=== PATIENT | male | born 1955 | race Caucasian/White ===

== ENCOUNTER 2016-06-27 19:31 | Emergency (ER) | payer OTHER ==
[~2016-06-27] VITALS: Ht 175.3 cm; Wt 83.5 kg
[~2016-06-27 19:31] MED LIST: AMOX-CLAV 875-1 EACH PO; AMOXICILLIN500 M3 PO; AQUAPHOR1 OI1 TOP; ASPIRIN CHILDRE81 MG PO; ASPIRIN81 M4 PO; ATORVASTATIN CA10 MG PO; ATROPINE SULFATE2 ML OS; AUGMENTIN 875-1 EACH PO; CEPHALEXIN500 MG PO; FUROSEMIDE20 M1 PO; HUMALOG100 U/ML SC; LANTUS INS100 UNITS/ SC; LEVEMIR 10100 UNITS/ SC; LEVEMIR FL100 UNIT/1 SC; LEVEMIR100 U/ML SC; LEVEMIR100 UNIT/1 SC; LEVOTHYROXINE200 MC1 PO; LISINOPRIL20 M1 PO; LOPRESSOR50 M1 PO; LORAZEPAM0.5 MG PO; MASON NATURAL2000 IU PO; MEDIHONEY TOP; MEDROL4 M2 PO; METOPROLOL SUCC25 MG PO; NEURONTIN300 M1 PO; NOVOLOG100 U/ML SC; PREDNISOLONE ACE5 ML OS; SULFAMETHOXAZO1 EAC1 PO; VIGAMOX3 ML OS; VITAMIN D1000 IU PO
--- NOTE | 2016-06-27 19:33 | ED SYNCOPE COMPLAINT ---
History of Present Illness General Chief Complaint: Syncope and Near-Syncope Stated Complaint: BIBA SYNCOPE Source: patient, family, old records, EMS Exam Limitations: no limitations Vital Signs & Intake/Output Vital Signs & Intake/Output Vital Signs Date Time Temp Pulse Resp B/P Pulse O2 O2 Flow FiO2 Ox Delivery Rate 06/27 2230 73 172/94 06/27 2214 70 178/100 06/27 2137 97.0 70 16 178/100 93 Room Air 06/27 2004 94 Room Air 06/27 1939 97.0 77 16 170/86 93 Room Air ED Intake and Output 06/28 0000 06/27 1200 Intake Total 0 Output Total Balance 0 Intake, Oral 0 Patient 184 lb Weight Allergies Coded Allergies: No Known Allergies (06/27/16) Reconcile Medications Aspirin (Aspirin*) 81 MG TAB.CHEW 1 TAB PO DAILY HEART HEALTH (Reported) Atorvastatin Calcium (Lipitor) 40 MG TABLET 1 TAB PO DAILY CHOLESTEROL ( Reported) [autologous serum] 1 DROP OS 4XDAILY FOR SUSPECTED VIRAL INFECTION (Reported) Doxycycline Monohydrate 100 MG CAPSULE 1 CAP PO DAILY ANTIBIOTIC (Reported) Furosemide 20 MG TABLET 1 TAB PO DAILY DIURETIC (Reported) Insulin Aspart (Novolog) (Unknown Strength) VIAL (Unknown Dose) SC TIDAC/HS DM (Reported) Insulin Detemir (Levemir) 100 UNIT/1 ML VIAL 10 U SC DAILY DIABETES (Reported ) Insulin Detemir (Levemir Flextouch) 100 UNIT/ML (3 ML) INSULN.PEN 20 U SC QPM DIABETES (Reported) Levothyroxine Sodium 200 MCG TABLET 1 TAB PO DAILY THYROID (Reported) Lisinopril 20 MG TABLET 1 TAB PO DAILY BLOOD PRESSURE (Reported) Metoprolol Tartrate (Lopressor) (Unknown Strength) TABLET (Unknown Dose) PO DAILY HEART/BP (Reported) Trifluridine 1 % DROPS 1 DROP OS 5 TIMES/DAY ANTIVIRAL (Reported) Triage Nurses Notes Reviewed? yes Timing: single episode today Precipitating Factors: none Context: PLEASE SEE hpi Loss of Consciousness: dazed Associated Symptoms: weakness HPI: 61 year old male with history of hypertension cortices who presents to the ER for chief complaint of syncopal episode on the bed. He states he was sitting on the edge of the bed talking to his . He had a normal day went to a hockey game this morning. Eating and drinking normally. He states when he was sitting on the bed and he felt like he couldn't move. When the got out of the bathroom she said he was lying flat on the bed and was dazed. Symptoms lasted for less than a minute. He denies chest pain or shortness breath. He denies any headache or blurred vision. He states some similar happened to him many years ago and was diagnosed with a vasovagal episode. Patient follows up with Dr. Landaverde in the office in 2 weeks ago he had an EKG and echocardiogram which they assume was normal. He also had a follow-up with his primary care doctor in everything was normal. Past History Medical History Any Pertinent Medical History? 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 Hx Contributory? No Review of Systems Review of Systems Constitutional: Denies: chills, fever. Physical Exam Physical Exam General Appearance: well developed/nourished, alert, awake, mild distress Head: atraumatic, active bleeding Eyes: Bilateral: normal appearance, PERRL, EOMI. Ears, Nose, Throat: normal pharynx, normal ENT inspection, hearing grossly normal Neck: normal inspection, supple, full range of motion Respiratory: normal breath sounds, chest non-tender, quiet respiration Cardiovascular: regular rate/rhythm Gastrointestinal: normal bowel sounds, soft Extremities: normal inspection, normal capillary refill, normal range of motion, no edema Psychiatric: awake, alert, oriented x 3 Cranial Nerves: normal hearing, normal speech, PERRL Coordination/Gait: normal finger to nose, slow steady gait with assistance (uses walker) Motor/Sensory: no motor/sensory deficits Core Measures ACS in differential dx? Yes ASA ordered for poss ACS? No-ACS ruled out CVA/TIA Diagnosis: No Severe Sepsis Present: No Septic Shock Present: No Progress Differential Diagnosis: AMI, aortic dissection, orthostatic syncope, pulmonary embolus, sick sinus syndrome, ORTHOSTATIC HYPOTENSION, VASOVAGAL EPISODE, DYSRHYTHMIA Plan of Care: Orders Procedure Date/time Status TROPONIN LEVEL 06/27 2329 Complete EKG 06/27 2329 Active URINALYSIS 06/27 2105 Complete MISTAKE 06/27 1945 Active Telemetry/Ecdis N Navigation Operator 06/27 1945 Active TROPONIN LEVEL 06/27 1945 Complete PARTIAL THROMBOPLASTIN TIME 06/27 1945 Complete PROTHROMBIN TIME 06/27 1945 Complete COMPREHENSIVE METABOLIC PANEL 06/27 1945 Complete CBC WITHOUT DIFFERENTIAL 06/27 1945 Complete EKG 06/28 1931 Active Laboratory Tests 06/27/160: Troponin I < 0.01 06/27/162150: Urine Color YEL, Urine Clarity CLEAR, Urine pH 6.5, Ur Specific [place] 1.025, Urine Protein >=300 H, Urine Ketones NEG, Urine Nitrite NEG, Urine Bilirubin NEG, Urine Urobilinogen >=8.0 H, Ur Leukocyte Esterase NEG, Ur Microscopic SEDIMENT EXAMINED, Urine RBC 15-25 H, Urine WBC RARE, Urine Bacteria RARE H, Hyaline Casts 1-3 H, Urine Hemoglobin SMALL H, Urine Glucose 100 H 06/27/161955: Anion Gap 7, Estimated GFR > 60, BUN/Creatinine Ratio 32.5 H, Glucose 107 H, Calcium 9.2, Total Bilirubin 0.6, AST 27, ALT 35, Alkaline Phosphatase 105, Troponin I < 0.01, Total Protein 6.1 L, Albumin 3.3 L, Globulin 2.8, Albumin/ Globulin Ratio 1.2, PT 11.4, INR 1.09, APTT 41 H, CBC w Diff NO MAN DIFF REQ, RBC 4.02 L, MCV 92.9, MCH 30.9, RDW 16.1 H, MPV 11.4 H, Gran % 55.0, Lymphocytes % 26.3, Monocytes % 12.0 H, Eosinophils % 6.2 H, Basophils % 0.5, Absolute Granulocytes 2.8, Absolute Lymphocytes 1.3, Absolute Monocytes 0.6, Absolute Eosinophils 0.3, Absolute Basophils 0, PUBS MCHC 33.2 EKG, nurse monitoring, orthostatic vital signs. Patient asymptomatic at this time. States similar things happen in the past. Recent cardiology evaluation which was normal per the patient. First troponin is negative. We will monitor the patient for second troponin and EKG. Remains normal sinus rhythm on the nurse monitoring. He has been admitted her to the bathroom with steady gait. Repeat troponin is also negative. Patient was given his hypertensive medication as well as his gave him his eyedrops. They will follow-up with Dr. Knight 's office tomorrow for results of the echocardiogram and EKG. No chest pain during the visit. No shortness of breath during the visit. (KANE BURROUGHS,AMINA) Initial ED EKG: LBBB, 1ST DEGREE AV BLOCK, T WAVE INVERSION LATERAL Prior EKG: unchanged Repeat EKG: unchanged Rhythm Strip: normal sinus rhythm Departure Departure Time of Disposition: 38 Disposition: HOME OR SELF CARE Condition: Stable Clinical Impression Primary Impression: Vasovagal syncope Secondary Impressions: Dehydration, Hypertension Referrals: SURY BURROUGHS,DELL KENDRICK MD,LEILA (PCP/Family) Additional Instructions: Drink plenty of fluids and please follow up with Dr. Barahona in the office. Return immediately to the ER for any changing or worsening symptoms. Departure Forms: Customer Survey General Discharge Information
[2016-06-27 20:13] LABS: ABSOLUTE BASOPHIL COUNT 0 /CUMM (0.0-0.2); ABSOLUTE EOSINOPHIL COUNT 0.3 /CUMM (0.0-0.7); ABSOLUTE GRANULOCYTE CT 2.8 /CUMM (1.4-6.5); ABSOLUTE LYMPH COUNT 1.3 /CUMM (1.2-3.4); ABSOLUTE MONOCYTE COUNT 0.6 /CUMM (0.10-0.60); BASOPHIL % 0.5 % (0.0-2.0); EOSINOPHIL % 6.2 % (0-5); HEMATOCRIT 37.3 % (42-52); MEAN CORPUSCULAR HGB 30.9 PG (27.0-31.0); MEAN CORPUSCULAR HGB CONC 33.2 G/DL (33.0-37.0); MEAN CORPUSCULAR VOLUME 92.9 FL (80.0-94.0); MEAN PLATELET VOLUME 11.4 FL (7.4-10.4); RBC DISTRIBUTION WIDTH 16.1 % (11.5-14.5); RED BLOOD CELL CT 4.02 /CUMM (4.70-6.10); WHITE BLOOD CELL COUNT 5.1 /CUMM (4.8-10.8)
[2016-06-27 20:20] LABS: PT 11.4 SEC (9.4-12.5); PTT 41 SEC (25-37)
[2016-06-27 20:33] LABS: PLATELET COUNT 141 /CUMM (130-400)
[2016-06-27] MEDS ORDERED: LIPITOR40 M1 PO (20:53)
[2016-06-27] MEDS ORDERED: DOXYCYCLINE MO100 M2 PO (20:55)
[2016-06-27] MEDS ORDERED: TRIFLURIDINE7.5 ML OS (20:57)
[2016-06-27] MEDS ORDERED: NOVOLOG100 UNIT/2 SC (20:59)
[2016-06-27] MEDS ORDERED: AUTOLOGOUS SERUM OS (20:59)
[2016-06-28 00:45] VITALS: BP 186/90
== END 2016-06-28 00:58 ==
LOC: ERH 19:31
PROVIDERS: Emergency Medicine
DX: R55 Syncope and collapse (principal); E86.0 Dehydration; I10 Essential (primary) hypertension
CPT/HCPCS: 81001; 93005; 93010; 96372; 96374

== ENCOUNTER 2016-09-04 15:28 | Observation (INO) | payer OTHER ==
[~2016-09-04 15:28] MED LIST changes: +AUTOLOGOUS SERUM OS; +DOXYCYCLINE MO100 M2 PO; +LIPITOR40 M1 PO; +NOVOLOG100 UNIT/2 SC; +TRIFLURIDINE7.5 ML OS
[2016-09-04] MEDS ORDERED: LISINOPRIL40 M1 PO (15:44)
--- NOTE | 2016-09-04 15:44 | ED SYNCOPE COMPLAINT ---
See Addendum History of Present Illness General Chief Complaint: General Adult Stated Complaint: SYNCOPE, HYPERGLYCEMIA Source: patient, family, old records Exam Limitations: no limitations Vital Signs & Intake/Output Vital Signs & Intake/Output Vital Signs Date Time Temp Pulse Resp B/P B/P Pulse O2 O2 Flow FiO2 Mean Ox Delivery Rate 09/05 0052 95.5 64 20 170/87 95 Nasal 2.0L Cannula 09/04 2310 Nasal 2.0L Cannula 09/04 2212 98.2 80 18 166/84 94 Nasal 2.0L Cannula 09/04 1921 83 18 171/80 96 Nasal 2.0L Cannula 09/04 1744 95 Nasal 2.0L Cannula 09/04 1731 62 16 160/72 90 Room Air 09/04 1536 97.8 62 15 150/84 92 Room Air Room Air ED Intake and Output 09/05 0000 09/04 1200 Intake Total 0 Output Total Balance 0 Intake, Oral 0 Allergies Coded Allergies: No Known Allergies (06/27/16) Reconcile Medications Aspirin (Aspirin*) 81 MG TAB.CHEW 1 TAB PO DAILY HEART HEALTH (Reported) Atorvastatin Calcium (Lipitor) 40 MG TABLET 1 TAB PO DAILY CHOLESTEROL ( Reported) [autologous serum] 1 DROP OS 4XDAILY FOR SUSPECTED VIRAL INFECTION (Reported) Furosemide 20 MG TABLET 1 TAB PO DAILY DIURETIC (Reported) Insulin Aspart (Novolog) (Unknown Strength) VIAL (Unknown Dose) SC TIDAC/HS DM (Reported) Insulin Degludec (Tresiba Flextouch U-100) (Unknown Strength) INSULN.PEN 26 UNITS SC QHS DM (Reported) Levothyroxine Sodium 200 MCG TABLET 1 TAB PO DAILY THYROID (Reported) Lisinopril 40 MG TABLET 1 TAB PO DAILY BP (Reported) Lorazepam 0.5 MG TABLET 1 TAB PO DAILY PRN ANXIETY (Reported) Metoprolol Tartrate (Lopressor) (Unknown Strength) TABLET (Unknown Dose) PO DAILY HEART/BP (Reported) Trifluridine 1 % DROPS 1 DROP OS 5 TIMES/DAY ANTIVIRAL (Reported) Triage Note: PT BIBA FROM HOME FOR HYPERGLYCEMIA AND SYNCOPE S/P OUTPATIENT EYE PROCEDURE AT [facility] TODAY. PT'S F/S ON ARRIVAL 314. Triage Nurses Notes Reviewed? yes Timing: single episode today Precipitating Factors: none Context: laying down Episode Description: reports pt was laying down and getting his BP checked when he suddendly jotled backwards and was unresponsive for a few seconds. currently feels well. Loss of Consciousness: brief (seconds) HPI: 61-year-old male with a history of insulin-dependent diabetes presents after possible syncopal episode. Patient had an outpatient eye procedure done earlier today at [facility]. When patient got home he was laying on the couch and his went to take his blood pressure. While his was taking his blood pressure he suddenly jolted backwards against the couch and was unresponsive for several seconds. Patient denies any chest pain or shortness of breath before or after the episode and currently feels well. His is also concerned about elevated blood sugar to the 400s. His administered insulin and blood sugar came down to the 200s. Patient currently feels well and denies any symptoms. He had a similar episode a month ago and was admitted to the hospital. He had a cardiac workup that was within normal limits but did not have a cardiac cath per patient. (TRINIDAD MCKOY PA-C) Past History Travel History Traveled to [place] past 21 day No Medical History Any Pertinent Medical History? 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 Hx Contributory? No (TRINIDAD MCKOY PA-C) Review of Systems Review of Systems Constitutional: Reports: no symptoms. EENTM: Reports: no symptoms. Respiratory: Reports: no symptoms. Cardiovascular: Reports: no symptoms. GI: Reports: no symptoms. Genitourinary: Reports: no symptoms. Musculoskeletal: Reports: no symptoms. Skin: Reports: no symptoms. Neurological/Psychological: Reports: other (SYNCOPE). All Other Systems: Reviewed and Negative (TRINIDAD MCKOY PA-C) Physical Exam Physical Exam General Appearance: well developed/nourished, no apparent distress, alert, awake Head: atraumatic, normal appearance Eyes: Right: normal appearance, PERRL, EOMI. Ears, Nose, Throat: normal pharynx, normal ENT inspection, hearing grossly normal Neck: normal inspection, supple, full range of motion Respiratory: no respiratory distress, decreased breath sounds (RIGHT LOWER LOBE) , wheezing (LEFT UPPER AND LOWER) Cardiovascular: regular rate/rhythm, normal peripheral pulses Gastrointestinal: normal bowel sounds, soft, non-tender, no organomegaly Back: normal inspection, normal range of motion, no vertebral tenderness Extremities: normal inspection, normal capillary refill, normal range of motion, no edema Psychiatric: awake, alert, oriented x 3 Cranial Nerves: normal hearing, normal speech, PERRL Coordination/Gait: normal finger to nose, normal gait Motor/Sensory: no motor/sensory deficits Reflexes: 2+: bicep (R), bicep (L). Skin: intact, normal color, warm/dry Lymphatic: no anterior cervical carole Core Measures ACS in differential dx? Yes CVA/TIA Diagnosis: No Severe Sepsis Present: No Septic Shock Present: No (TRINIDAD MCKOY PA-C) Progress Differential Diagnosis: AMI, aortic valve, drug induced syncope, orthostatic syncope, other valvular disease, sick sinus syndrome, TIA/CVA, vertigo Plan of Care: Orders Procedure Date/time Status Regular Diet 09/05 B Active Misc Message 09/05 0108 Active ED Holding Orders 09/05 0108 Active Vital Signs 09/05 0108 Active Code Status 09/05 0108 Active Regular Diet 09/04 D Active Intake & Output 09/[address] in observation 09/04 2242 Active Patient Data 09/04 2242 Active TROPONIN LEVEL 09/05 1999 Complete EKG 09/05 1999 Active Add-on Test (ER Only) 09/04 1754 Active MISTAKE 09/04 1608 Active Telemetry/Commercial Lines Sales Executive 09/04 1608 Active URINALYSIS 09/04 1608 Complete TROPONIN LEVEL 09/04 1608 Complete COMPREHENSIVE METABOLIC PANEL 09/04 1608 Complete CBC WITHOUT DIFFERENTIAL 09/04 1608 Complete EKG 09/04 1534 Active FingerStick- Glucose 09/04 1532 Active URINE DRUGS OF ABUSE 09/04 1415 Complete Laboratory Tests 09/04/16 2023: Troponin I < 0.01 09/04/16 1614: Anion Gap 7, Estimated GFR > 60, BUN/Creatinine Ratio 24.4, Glucose 310 H, Calcium 8.7, Total Bilirubin 0.7, AST 27, ALT 45, Alkaline Phosphatase 104, Troponin I < 0.01, Total Protein 6.3, Albumin 3.5, Globulin 2.8, Albumin/ Globulin Ratio 1.3, CBC w Diff NO MAN DIFF REQ, RBC 4.25 L, MCV 93.1, MCH 30.3, RDW 16.1 H, MPV 11.5 H, Gran % 86.7 H, Lymphocytes % 11.1 L, Monocytes % 1.9 , Eosinophils % 0.3, Basophils % 0 L, Absolute Granulocytes 3.6, Absolute Lymphocytes 0.5 L, Absolute Monocytes 0.1 L, Absolute Eosinophils 0, Absolute Basophils 0, PUBS MCHC 32.6 L, Urinalysis LIGHT H, Urine Color YEL, Urine Clarity HAZY H, Urine pH 6.5, Ur Specific [place] 1.020, Urine Protein 100 H, Urine Ketones NEG, Urine Nitrite NEG, Urine Bilirubin NEG, Urine Urobilinogen 1.0, Ur Leukocyte Esterase NEG, Ur Microscopic SEDIMENT EXAMINED, Urine RBC 5-10 H, Urine WBC RARE, Ur Epithelial Cells RARE, Urine Bacteria RARE H, Granular Casts RARE H, Urine Mucus RARE, Urine Hemoglobin SMALL H, Urine Glucose >=1000 H 09/04/16 1415: Urine Opiates Screen < 100.00, Methadone Screen < 40, Barbiturate Screen < 60, Ur Phencyclidine Scrn < 6.00, Amphetamines Screen < 100, U Benzodiazepines Scrn > 800 H, Urine Cocaine Screen < 50, Urine Cannabis Screen < 5.00 Negative orthostasis.labs are back and are WNL other than elevated blood sugar. Pt will be given 8 units of IV insulin (based on pts sliding scale). Normal diet order put in. EKG shows ST depression in the anterior and lateral leads that appears more depressed compared to previous. First troponin was negative. Pt will have a repeat troponin and EKG in 4 hours. Patient's oxygen saturation on room air is between 88 and 89. It comes up to 96 on 2 L via nasal cannula. 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 he denies any shortness of breath coughing chest pain currently. Portable chest x-ray and DuoNeb were ordered for the patient for further evaluation and be placed back on 2 L via nasal cannula for the time being. He'll be reevaluated after DuoNeb and chest x-ray. Reviewed all results with pt and he agrees with the plan. He is currently feeling well and is non-toxic appearing. Case discussed with Dr Dalton and she agrees with the plan. Patient was reevaluated after DuoNeb. Oxygen was turned off and patient was evaluated on room air for several minutes. Oxygen saturation dropped again between 89 and 90 on room air. Patient was put back on 2 L oxygen via nasal cannula. 5:56 Pt signed out to [place] Suarez. Repeat troponin and EKG are pending at 8: 00pm. Also waiting on chest x-ray (EAN ALEXANDER,TRINIDAD) 09/04/2016 8:33:49 PM patient resting in no apparent distress able towards the bathroom by himself however when taken off O2 patient dips 8990%. Pending repeat troponin case discussed with Dr. Raya 2229 Discussed with patient at length all of his lab results however when the patient comes off the O2 he remains 89-90% is without any complaints discussed with him all his lab results including his elevated benzo level. Case was discussed with and signed out to Dr. Raya pending reevaluation PATIENT: GUILLE URBAN PRESENT AGE: 61 PATIENT ACCOUNT NO: [id number] : 55 LOCATION: [facility] ORDERING PHYSICIAN: TRINIDAD MCKOY PA-C SERVICE DATE: 09/04/16 EXAM TYPE: RAD - XRY-PORTABLE CHEST XRAY EXAMINATION: XR PORTABLE CHEST CLINICAL INFORMATION: Decreased oxygen saturation. COMPARISON: Chest x-ray 12/22/2011. TECHNIQUE: Portable frontal view of the chest was obtained. FINDINGS: The lungs are hypoinflated, without focal airspace consolidation. No pleural effusions or pneumothoraces are identified. Cardiomediastinal contours are stable. There are median sternotomy wires. There is mild prominence of the right pulmonary artery and nonspecific elevation of the right hemidiaphragm. Soft tissues are unremarkable. No acute osseous abnormality is identified. IMPRESSION: No acute pulmonary process. DICTATED BY: REYNA HUFFMAN MD DATE/TIME DICTATED:09/04/161807 COURT ASSISTANT:LUL DATE/TIME TRANSCRIBED:09/04/161807 CONFIDENTIAL, DO NOT COPY WITHOUT APPROPRIATE AUTHORIZATION. 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 Benzodiazepine overdose requiring observation. (STEFFI RAYA MD) Departure Departure Disposition: STILL A PATIENT Condition: Stable Referrals: LEILA KENDRICK MD (PCP/Family) Departure Forms: Customer Survey General Discharge Information (TRINIDAD MCKOY PA-C) Departure Clinical Impression Primary Impression: Syncope Qualifiers: Syncope type: unspecified Qualified Code: R55 - Syncope and collapse Secondary Impressions: Hyperglycemia (MONTANA YATES) PA/PERIANESTHESIA RN Co-Sign Statement Statement: ED Attending supervision documentation- [X] I saw and evaluated the patient. I have also reviewed all the pertinent lab results and diagnostic results. I agree with the findings and the plan of care as documented in the PA's/PERIANESTHESIA RN's documentation. [X] I have reviewed the ED Record and agree with the PA's/PERIANESTHESIA RN's documentation. [] Additions or exceptions (if any) to the PAs/PERIANESTHESIA RN's note and plan are summarized below: [] (KANE BURROUGHS,AMINA)
[2016-09-04] MEDS ORDERED: TRESIBA FL100 UNIT/1 SC (15:46)
[2016-09-04] MEDS ORDERED: LORAZEPAM0.5 M1 PO (15:47)
[2016-09-04 16:32] LABS: ABSOLUTE BASOPHIL COUNT 0 /CUMM (0.0-0.2); ABSOLUTE EOSINOPHIL COUNT 0 /CUMM (0.0-0.7); ABSOLUTE GRANULOCYTE CT 3.6 /CUMM (1.4-6.5); ABSOLUTE LYMPH COUNT 0.5 /CUMM (1.2-3.4); ABSOLUTE MONOCYTE COUNT 0.1 /CUMM (0.10-0.60); BASOPHIL % 0 % (0.0-2.0); EOSINOPHIL % 0.3 % (0-5); HEMATOCRIT 39.5 % (42-52); MEAN CORPUSCULAR HGB 30.3 PG (27.0-31.0); MEAN CORPUSCULAR HGB CONC 32.6 G/DL (33.0-37.0); MEAN CORPUSCULAR VOLUME 93.1 FL (80.0-94.0); MEAN PLATELET VOLUME 11.5 FL (7.4-10.4); PLATELET COUNT 139 /CUMM (130-400); RBC DISTRIBUTION WIDTH 16.1 % (11.5-14.5); RED BLOOD CELL CT 4.25 /CUMM (4.70-6.10); WHITE BLOOD CELL COUNT 4.2 /CUMM (4.8-10.8)
[2016-09-04 16:35] LABS: GRANULOCYTE % 86.7 % (42.2-75.2)
--- NOTE | 2016-09-04 18:15 | RADIOLOGY REPORT ---
EXAMINATION: XR PORTABLE CHEST CLINICAL INFORMATION: Decreased oxygen saturation. COMPARISON: Chest x-ray 12/22/2011. TECHNIQUE: Portable frontal view of the chest was obtained. FINDINGS: The lungs are hypoinflated, without focal airspace consolidation. No pleural effusions or pneumothoraces are identified. Cardiomediastinal contours are stable. There are median sternotomy wires. There is mild prominence of the right pulmonary artery and nonspecific elevation of the right hemidiaphragm. Soft tissues are unremarkable. No acute osseous abnormality is identified. IMPRESSION: No acute pulmonary process.
[2016-09-05 06:12] VITALS: BP 165/86
== END 2016-09-05 06:41 ==
LOC: ERH 15:28 → ERHI 22:42
PROVIDERS: Physician Assistant Medical; ADMIT Emergency Medicine
DX: T42.4X1A Poisoning by benzodiazepines, accidental (unintentional), initial encounter (principal); R55 Syncope and collapse; E11.65 Type 2 diabetes mellitus with hyperglycemia; Z79.4 Long term (current) use of insulin; E03.9 Hypothyroidism, unspecified; I25.10 Atherosclerotic heart disease of native coronary artery without angina pectoris; I10 Essential (primary) hypertension; E11.42 Type 2 diabetes mellitus with diabetic polyneuropathy; H91.90 Unspecified hearing loss, unspecified ear
CPT/HCPCS: 1263; 80307; 81001; 93005; 93010; 96372; 96374; 96376; G0378; J1815

== ENCOUNTER 2016-09-11 13:04 | Observation (INO) | payer OTHER ==
[~2016-09-11] VITALS: Ht 177.8 cm; Wt 80.7 kg
[~2016-09-11 13:04] MED LIST changes: +LISINOPRIL40 M1 PO; +LORAZEPAM0.5 M1 PO; +TRESIBA FL100 UNIT/1 SC
--- NOTE | 2016-09-11 13:10 | NUR ---
PT BIBA FROM HOME. PT HAD SYNCOPAL EPISODE WHILE WALKING BACK FROM [place]. PT STATES HAD SAME INCIDENT LAST WEEK AND WAS SEEN HERE FOR SAME. PT DENIES HITTING HEAD, DENIES LOC. STATES HE WAS DIZZY PRIOR TO INCIDENT. PT STATES RECENT CHANGE IN LISINOPRIL DOSAGE
--- NOTE | 2016-09-11 13:10 | NUR ---
PT CHANGED INTO GOWN, PLACED ON CARDIAC [id number]
--- NOTE | 2016-09-11 13:10 | ED SYNCOPE COMPLAINT ---
History of Present Illness General Chief Complaint: Syncope and Near-Syncope Stated Complaint: SYNCOPE Source: patient, family, old records, EMS Exam Limitations: no limitations Vital Signs & Intake/Output Vital Signs & Intake/Output Vital Signs Date Time Temp Pulse Resp B/P B/P Pulse O2 O2 Flow FiO2 Mean Ox Delivery Rate 09/11 2142 Room Air 09/11 1828 70 162/74 09/11 1550 97.2 60 18 171/86 93 Room Air Room Air 09/11 1343 63 153/83 09/11 1336 97 Room Air 09/11 1308 97.0 64 20 197/91 94 Room Air Allergies Coded Allergies: No Known Allergies (06/27/16) Reconcile Medications Aspirin (Aspirin*) 81 MG TAB.CHEW 1 TAB PO DAILY HEART HEALTH (Reported) Atorvastatin Calcium (Lipitor) 40 MG TABLET 1 TAB PO DAILY CHOLESTEROL ( Reported) Atropine Sulfate in 0.9% NaCl (Atropine 0.01%-Ns Eye Drops) 0.01 % DROPS 1 GTT OP DAILY eye (Reported) [autologous serum] 1 DROP OS 4XDAILY FOR SUSPECTED VIRAL INFECTION (Reported) Furosemide 20 MG TABLET 1 TAB PO DAILY DIURETIC (Reported) Gatifloxacin (Zymaxid) 0.5 % DROPS 1 GTT OD 4 TIMES/DAY eye drops (Reported) Insulin Aspart (Novolog) 100 UNIT/ML VIAL 0 SC TIDAC/HS DM (Reported) Insulin Degludec (Tresiba Flextouch U-100) (Unknown Strength) INSULN.PEN 26 UNITS SC QHS DM (Reported) Levothyroxine Sodium 200 MCG TABLET 1 TAB PO DAILY AC THYROID (Reported) Lisinopril 40 MG TABLET 1 TAB PO DAILY BP (Reported) Metoprolol Tartrate 25 MG TABLET 1 TAB PO DAILY HEART (Reported) Prednisolone Acetate (Omnipred) 1 % DROPS.SUSP 1 GTT OS 4 TIMES/DAY eye ( Reported) Trifluridine 1 % DROPS 1 DROP OS 5 TIMES/DAY ANTIVIRAL (Reported) Triage Note: PT BIBA FROM HOME. PT HAD SYNCOPAL EPISODE WHILE WALKING BACK FROM . PT STATES HAD SAME INCIDENT LAST WEEK AND WAS SEEN HERE FOR SAME. PT DENIES HITTING HEAD, DENIES LOC. STATES HE WAS DIZZY PRIOR TO INCIDENT. PT STATES RECENT CHANGE IN LISINOPRIL DOSAGE Triage Nurses Notes Reviewed? yes Timing: multiple episodes today Precipitating Factors: SITTING DOWN EATING BREAKFAST Episode Description: SEE HPI Loss of Consciousness: prolonged (minutes) Associated Symptoms: HEAD FELT FLUSHED HPI: This is a 61-year-old male presents to the ER by EMS from home for chief complaint of near syncope 2 at home. He states he was sitting down eating strawberries when he felt a messer feeling to his head and thought that he was going to pass out. He states that somebody cleared food from his mouth to make sure he didn't choke on it. Past History Travel History Traveled to [place] past 21 day No Medical History Any Pertinent Medical History? 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 Respiratory: NONE Gastrointestinal: NONE Hepatic: NONE Renal: NEPHRITIS KIDNEY STONES Musculoskeletal: CHARCOT FOOT Psychiatric: NONE Endocrine: diabetes, hypothyroidism Blood Disorders: NONE Cancer(s): NONE Other Medical Hx: Charcot'S syndrome History of MRSA: No History of VRE: No History of CDIFF: No Surgical History Surgical History: non-contributory Psychosocial History Who do you live with Spouse Services at Home None What is your primary language Icelandic Tobacco Use: Never used ETOH Use: denies use Illicit Drug Use: denies illicit drug use Family History Family History, If Any: MOTHER FH: dementia FH: hypothyroidism FATHER (hypertension). Hx Contributory? No Review of Systems Review of Systems Constitutional: Denies: chills, fever. EENTM: Reports: no symptoms. Respiratory: Denies: cough, short of breath. Cardiovascular: Reports: syncope. Denies: chest pain, palpitations. GI: Denies: abdominal pain, diarrhea, nausea, vomiting. Genitourinary: Reports: no symptoms. Musculoskeletal: Denies: back pain. Skin: Reports: no symptoms. Neurological/Psychological: Denies: anxiety, ataxia, confusion, dementia, emotional problems. All Other Systems: Reviewed and Negative Physical Exam Physical Exam General Appearance: well developed/nourished, alert, awake, anxious, mild distress Head: atraumatic, normal appearance Eyes: Bilateral: normal appearance, PERRL, EOMI. Ears, Nose, Throat: normal pharynx, hearing grossly normal Neck: normal inspection, supple, full range of motion Respiratory: normal breath sounds, chest non-tender, no respiratory distress Cardiovascular: regular rate/rhythm Gastrointestinal: soft, non-tender Back: normal inspection, normal range of motion Extremities: normal inspection, normal range of motion, no edema Psychiatric: awake, alert, oriented x 3 Cranial Nerves: normal hearing, normal speech, PERRL, LEFT EYE INJECTION Core Measures ACS in differential dx? No ASA ordered for poss ACS? PER INPATIENT TEAM CVA/TIA Diagnosis: No Severe Sepsis Present: No Septic Shock Present: No Progress Differential Diagnosis: AMI, aortic dissection, orthostatic syncope, sick sinus syndrome, TIA/CVA, MEDICATION REACTION, UNCONTROLLED DM Plan of Care: Orders Procedure Date/time Status Heart Healthy Diet 09/12 B Active CBC WITHOUT DIFFERENTIAL 09/12 06 Active BASIC ELECTROLYTES PLUS BUN&CR 09/12 06 Active TROPONIN LEVEL 09/12 0200 Active EKG 09/12 0200 Active THERAPIST ORDERS 09/11 214 Complete RT: Evaluation 09/11 2141 Active TROPONIN LEVEL 09/12 1999 Complete EKG 09/12 1999 Active Teach/Educate 09/11 184 Active Pain Treatment and Response 09/11 184 Active Nutritional Intake, Monitor 09/11 1841 Active Isolation 09/11 1841 Active Patient Care Conference 09/11 1841 Active Activity/Ambulation 09/11 1841 Active Code Status 09/11 1811 Active Pathway - chart 09/11 1738 Active Patient Data 09/[address] in observation 09/11 1642 Active ED Holding Orders 09/11 1642 Active Vital Signs 09/11 1642 Active Code Status 09/11 1642 Complete FingerStick- Glucose 09/11 1602 Active URINE DRUGS OF ABUSE 09/11 1518 Complete THYROID STIMULATING HORMONE 09/11 1410 Active TOTAL IRON BINDING CAPACITY 09/11 1410 Active PROLACTIN 09/11 1410 Active GLYCOSYLATED HGB 09/11 1410 Active FERRITIN 09/11 1410 Active SERUM IRON 09/11 1410 Active Telemetry/Banking Manager 09/11 1340 Active Intake & Output 09/11 1335 Active MISTAKE 09/11 1324 Complete TROPONIN LEVEL 09/11 1324 Active COMPREHENSIVE METABOLIC PANEL 09/11 1324 Active CBC WITHOUT DIFFERENTIAL 09/11 1324 Complete EKG 09/11 1310 Active TRC EVALUATION (GEN) 09/11 UNK Complete House Staff 09/11 UNK Active Lab Add-on Test 09/11 UNK Active VTE Mechanical Prophylaxis 09/11 UNK Active Vital Signs 09/11 UNK Active MISTAKE 09/11 UNK Active Seizure Precautions 09/11 UNK Active Precautions 09/11 UNK Active Intake & Output 09/11 UNK Complete Hemoccult 09/11 UNK Active FingerStick- Glucose 09/11 UNK Complete ELECTROENCEPHALOGRAM 09/11 UNK Active ECHOCARDIOGRAM 09/11 UNK Active Current Medications Sig/Sadiq Start time Last Medication Dose Stop Time Status Admin Atorvastatin Calcium 40 MG 1700 09/12 1700 AC (Lipitor) Furosemide 20 MG DAILY 09/12 1000 AC (Lasix) Lisinopril 40 MG DAILY 09/12 1000 AC (Prinivil) Metoprolol Tartrate 25 MG DAILY 09/12 1000 AC (Lopressor) Insulin Aspart 0 TIDAC 09/12 0800 AC (NovoLOG) Levothyroxine Sodium 0.2 MG DAILY AC 09/12 0700 AC (Synthroid) Heparin Sodium 5,000 UNIT Q8 09/11 2200 AC 09/11 (Porcine) 2212 Insulin Detemir 13 UNITS BID 09/11 220 AC 09/11 (Levemir) 221 Atropine Sulfate 1 GTT SEE ADMIN CRITERIA 09/11 193 AC (ATROPINE) Non-Formulary 0 SEE ADMIN CRITERIA 09/11 193 UNVr Medication (NON FORMULARY) Prednisolone 1 GTT 4 TIMES/DAY 09/11 1919 AC 09/11 (Pred Forte) 1999 Laboratory Tests 09/11/16 2025: Troponin I < 0.01 09/11/16 1558: Urine Opiates Screen < 100.00, Methadone Screen < 40, Barbiturate Screen < 60, Ur Phencyclidine Scrn < 6.00, Amphetamines Screen < 100, U Benzodiazepines Scrn < 85, Urine Cocaine Screen < 50, Urine Cannabis Screen < 5.00 09/11/16 1410: Anion Gap 6, Estimated GFR > 60, BUN/Creatinine Ratio 21.3, Glucose 308 H, Hemoglobin A1c Pending, Calcium 8.7, Iron 60, TIBC 254 L, Ferritin 78.0, Total Bilirubin 0.9, AST 23, ALT 34, Alkaline Phosphatase 99, Troponin I < 0.01, Total Protein 5.8 L, Albumin 3.2 L, Globulin 2.6, Albumin/Globulin Ratio 1.2, TSH 2.780, Prolactin 18.6 H 09/11/16 1333: CBC w Diff NO MAN DIFF REQ, RBC 4.24 L, MCV 91.3, MCH 30.6, RDW 15.9 H, MPV 11.4 H, Gran % 60.6, Lymphocytes % 21.8, Monocytes % 10.4 H, Eosinophils % 6.8 H, Basophils % 0.4, Absolute Granulocytes 2.5, Absolute Lymphocytes 0.9 L, Absolute Monocytes 0.4, Absolute Eosinophils 0.3, Absolute Basophils 0, PUBS MCHC 33.5 3:[address] MARYCHUY CLANCY. D/W DR PERRIN - AGREES WITH [address]. [address] GA'S NOTES H/O VASOVAGAL SYNCOPE, ? RELATED TO UNCONTROLLED DM. (KANE BURROUGHS,AMINA) Initial ED EKG: FIRST DEGREE AV BLOCK, ST DEPRESSIONS AND T WAVE INVERSIONS INFEROLATERAL LEADS, UNCHANGED Departure Departure Time of Disposition: 1621 Disposition: STILL A PATIENT Condition: Stable Clinical Impression Primary Impression: Syncope and collapse Secondary Impressions: Hyperglycemia Referrals: LEILA KENDRICK MD (PCP/Family) Departure Forms: Customer Survey General Discharge Information Observation Note Spoke With: TERESA BURROUGHS,ALBINO Physician Advisor Notified: RUSH BURROUGHS,MJ [facility]oto Place Patient In: Non-ED OBS Care Area Rationale for Observation: My rational for observation is as follows [TELE MONITOR, SERIAL EKG/TROPONIN, CARDIOLOGY EVALUATION, ECHOCARDIOGRAM].
--- NOTE | 2016-09-11 13:34 | NUR ---
EKG COMPLETED, SIGNED BY MD MIDDLETON IV EST, R HAND BLOODWORK SENT (LAV, SST, BLUE, PINK, CALVERT) PT REMAINS ALERT AND ORIENTED, CONVERSING WITH NO DISTRESS OR DEFICITS NOTED
[2016-09-11 13:41] LABS: ABSOLUTE BASOPHIL COUNT 0 /CUMM (0.0-0.2); ABSOLUTE EOSINOPHIL COUNT 0.3 /CUMM (0.0-0.7); ABSOLUTE GRANULOCYTE CT 2.5 /CUMM (1.4-6.5); ABSOLUTE LYMPH COUNT 0.9 /CUMM (1.2-3.4); ABSOLUTE MONOCYTE COUNT 0.4 /CUMM (0.10-0.60); BASOPHIL % 0.4 % (0.0-2.0); EOSINOPHIL % 6.8 % (0-5); GRANULOCYTE % 60.6 % (42.2-75.2); HEMATOCRIT 38.7 % (42-52); MEAN CORPUSCULAR HGB 30.6 PG (27.0-31.0); MEAN CORPUSCULAR HGB CONC 33.5 G/DL (33.0-37.0); MEAN CORPUSCULAR VOLUME 91.3 FL (80.0-94.0); MEAN PLATELET VOLUME 11.4 FL (7.4-10.4); PLATELET COUNT 130 /CUMM (130-400); RBC DISTRIBUTION WIDTH 15.9 % (11.5-14.5); RED BLOOD CELL CT 4.24 /CUMM (4.70-6.10); WHITE BLOOD CELL COUNT 4.1 /CUMM (4.8-10.8)
--- NOTE | 2016-09-11 13:57 | NUR ---
PER LAB SST NEEDS TO BE REDRAWN, SHAHID WISE MADE AWARE
[2016-09-11] MEDS ORDERED: METOPROLOL TART25 M1 PO (14:19)
--- NOTE | 2016-09-11 14:31 | NUR ---
PTS EYE DROPS PLACED IN BAG WITH NAME LABELS OVER BAG AND PLACED INTO MED ROOM REFRIGERATOR.
--- NOTE | 2016-09-11 15:28 | NUR ---
PT CARE ASSUMED BY THIS RN AT THIS TIME. PT CONTINUES NSR IN THE 60'S ON THE BRINE TANK TENDER. OFFERS NO COMPLAINTS AT THIS TIME.
--- NOTE | 2016-09-11 16:57 | NUR ---
DINNER TRAY ORDERED.
--- NOTE | 2016-09-11 17:21 | NUR ---
PT ADMITTED TO ROOM 178-1
--- NOTE | 2016-09-11 17:23 | NUR ---
PT MEDICATED WITH REGULAR INSULIN 8 UNITS PER EMAR. PROVIDED WITH DINNER TRAY TRAY. WILL RECHECK FBG IN 1 HOUR.
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
[2016-09-11] MEDS ORDERED: ATROPINE 0.01%-10 ML OP (19:17)
[2016-09-11] MEDS ORDERED: ZYMAXID2.5 ML OD (19:17)
[2016-09-11] MEDS ORDERED: OMNIPRED10 ML OS (19:18)
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
[2016-09-12 03:25] LABS: ABSOLUTE BASOPHIL COUNT 0 /CUMM (0.0-0.2); ABSOLUTE EOSINOPHIL COUNT 0.3 /CUMM (0.0-0.7); ABSOLUTE GRANULOCYTE CT 2.6 /CUMM (1.4-6.5); ABSOLUTE LYMPH COUNT 1.2 /CUMM (1.2-3.4); ABSOLUTE MONOCYTE COUNT 0.5 /CUMM (0.10-0.60); BASOPHIL % 0.6 % (0.0-2.0); EOSINOPHIL % 6.7 % (0-5); GRANULOCYTE % 55.5 % (42.2-75.2); HEMATOCRIT 37.9 % (42-52); MEAN CORPUSCULAR HGB 29.9 PG (27.0-31.0); MEAN CORPUSCULAR HGB CONC 32.3 G/DL (33.0-37.0); MEAN CORPUSCULAR VOLUME 92.5 FL (80.0-94.0); MEAN PLATELET VOLUME 11.4 FL (7.4-10.4); PLATELET COUNT 135 /CUMM (130-400); RBC DISTRIBUTION WIDTH 16.2 % (11.5-14.5); WHITE BLOOD CELL COUNT 4.7 /CUMM (4.8-10.8)
--- NOTE | 2016-09-12 06:58 | PN- Housestaff ---
Assessment/Plan Consulting Request: Consulting Specialty: Neurology
--- NOTE | 2016-09-12 07:00 | PN-Observation ---
JACQUELINE ISABEL MD 09/12/16 0700: Observation Note Observation Note _ I have personally examined GUILLE URBAN. him disposition is uncertain at this time. Before a determination can be made, he requires continued observation for the following reasons []. * Neurology consult with EEG interpretation * Cardiology consult with continued telemetry Assessment/Plan Assessment: 61 year old man with multiple medical problems significant for CAD, Cardiac Arrest with ICU admission secondary to DKA, HTN, HLD seen for evaluation of recurrent episodes of syncope. Patient has been seen and evaluated by the [facility] multiple over the past year for multiple vague neurological complaints that the patient attributes to his 'high blood sugars'. Patient has been reportedly referred to an ceramic tile installation helper but has not pursued evaluation stating financial limiations. Patient was placed under observation on the telemetry floor pending further evaluation. #Recurrent Syncope #History of Hyperglycemia with DKA #Insulin-dependent Diabetes Mellitus #Coronary Artery Disease #History of Cardia Arrest #Hypertension Patient with extensive cardiovascular history and poorly controlled diabetes mellitus seen for evaluation of vague neurologic complaints where patient "passes out". Vitals signs upon initial evaluation were significant for elevated blood pressures and were otherwise normal. Physical examination was including a neurology, cardiopulmonary, and abdominal examination was grossly unremarkable other than 2+ bilateral nonpitting edema and right sided winged scapula. Lab work demontrated a normal CBC/BEP/LFTs/UTox, glucose was > 300 and first troponin was negative. EKG demonstrated normal sinus rhythm and chronic diffuse ST segmenet changes. Given his vague symptoms and poorly controlled diabetes it is possible patient is having hypo/hyperglycemic related disease, however given his recent unintentional weight loss and new onset syncope vs seizures etiologies of seizure and syncope should be ruled out with possible considerations for occult cancers. Patient was seen and evaluation by cardiology whom determind that patient would benefit from a loop recorder, patient is to have one placed tomorrow morning. EEG was performed and neurology consultation took place; EEG was grossly unremarkable however patient will require outpatient follow up with 24-hour EEG and possible MRI imaging for which a referral is being made. Patient is to be discharged to home pending placement of the loop recorder. -Telemetry -Seizure/Fall precautions -Accuchecks TIDAC/HS -Trend troponins/EKG -Novolog SSI/Levemir/Fingersticks -Metoprolol Tartrate 25mg PO Daily -Lisinopril 40mg PO Daily -Lasix 20mg PO Daily -Neurology consult -Cardiology consult #Recent Cataract Surgery Patient of eye physicians Dr. Yadav and Dr. Mcclain. Patient was instructed to avoid using aspirin after his surgery last week to avoid any associated bleeding. -Hold aspirin, confirm with patient manager image when to restart -Continue eye drops #Hyperlipidemia-Atorvastatin 40mg PO Daily #Hypothyroidism-Levothyroxin 200mcg PO Daily Diet-Diabetic Diet DVT PPx-Subcutaneous Heparin Code Status-FULL CODE Problem List: 1. Syncope Consulting Request: 1 Consulting Specialty: Neurology Consulting Request: 2 Consulting Specialty: Cardiology Subjective Follow-up For: Syncope Tele-Events Since Last Visit: SB HR 54-65 Subjective: Patient seen and examined. He is seen sitting upright in bed resting comfortably. He appears to be in no acute distress. His is present at bedside. Patient reports feeling well and denies any further episodes of passing out. He admits that he otherwise feels well and has no new subjective complaints. Additionally he denies any blurred/double vision, lightheadedness/dizziness, headache, fever, chills, chest pain, palpitations, shortness of breath, nausea, vomiting, diarrhea. Review of Systems Constitutional: Reports: see HPI. Objective Last 24 Hrs of Vital Signs/I&O Vital Signs Date Time Temp Pulse Resp B/P B/P Pulse O2 O2 Flow FiO2 Mean Ox Delivery Rate 09/12 0956 150/66 09/12 0953 150/66 09/12 0827 98.0 61 18 150/66 92 09/11 2142 Room Air 09/11 1828 70 162/74 Intake & Output 09/12 1600 09/12 0800 09/12 0000 Intake Total 400 100 100 Output Total 550 400 Balance -150 100 -300 Intake, Oral 400 100 100 Output, Urine 550 400 Patient 80.739 kg Weight Physical Exam General Appearance: Alert, Oriented X3, Cooperative, No Acute Distress Other Physical Findings: General- well developed, well nourished middled aged man in no acute distress HEENT- NCAT, PERRL, EOMI, anicteric sclera, left eye mildly injected Chest- S1, S2 w/o m/g/r Lung- CTA bilaterally Abdomen- Soft, nontender, nondistended, bowel sounds intact Neuro- Awake and alert, CN II-XII grossly intact, gait/speech normal Ext- normal pulses, no cyanosis/clubbing/edema ALAN PAYNE MD 09/12/16 2896: Observation Note Observation Note _ I have personally examined GUILLE URBAN. him disposition is uncertain at this time. Before a determination can be made, he requires continued observation for the following reasons []. Addendum Note Addendum Patient seen and examined. Resting comfortably not in any acute distress. Alert and oriented 3. No events on telemetry monitoring. No complaints of nausea vomiting. No complaint of dizziness. EEG was done and showed no evidence of seizure activity. Case was discussed in detail with cardiology service. Due to recurrent episodes of syncope a LINQrecorder will be placed tomorrow after with patient may be discharged home. He will be followed by the neurology service as an outpatient for 24-hour EEG as well. reports that patient's blood glucose levels are suboptimally controlled with his current insulin regimen at home. She reports better control with the administration of Levemir overnight. He however had a drastic drop of his glucose level. He was seen by ceramic tile installation helper Dr. hawk. Recommendations are appreciated and will be carried out upon discharge
--- NOTE | 2016-09-12 07:33 | ECHOCARDIOGRAM REPORT ---
GUILLE URBAN Age: 61 : 1955 Gender: M Exam Date: 09/11/2016 18:47 Exam Location: [facility] Ht (in): 70 Wt (lb): 178 BSA: 2.01 BP: 188 / 100 Ordering Physician: SCOTT CORONADO MD Referring Physician: Ted De Oliveira M.D. Technologist: Yadi Landis SHASHA Room Number: 178 Indications: PRESYNCOPE/SYNCOPE Rhythm: Technical Quality: fair FINDINGS Left Ventricle Normal size left ventricle. Left ventricular wall thickness mildly increased. Normal left ventricular ejection fraction estimated at 60-65%. Proabale calcification of papillary muscle Right Ventricle Normal right ventricular size and function. Right Atrium Normal right atrial size. Left Atrium Mild left atrial dilatation. Mitral Valve Mild mitral annular calcification. Trace to mild mitral regurgitation. Aortic Valve Diffuse thickening (sclerosis) of the aortic valve cusps without reduced excursion. Tricuspid Valve Tricuspid valve is normal in structure and function. Mild tricuspid regurgitation. Right ventricular systolic pressure estimated to be at upper limits of normal at 35 mmHg. Pulmonic Valve Pulmonic valve not well visualized, grossly normal. Pericardium No pericardial effusion. Great Vessels Normal size aortic root. CONCLUSIONS Normal left ventricular systolic function with mild concentric hypertrophy. Mild left atrial enlargement. No significant valvular abnormalities noted. Rubin Landaverde M.D. (Electronically Signed) Final Date: 12 September 2016 07:33 MEASUREMENTS (Male / Female) Normal Values 2D ECHO LV Diastolic Diameter PLAX 5.0 cm 4.2 - 5.9 / 3.9 - 5.3 cm LV Systolic Diameter PLAX 3.5 cm 2.1 - 4.0 cm LV Fractional Shortening PLAX 30.0 % 25 - 46 % LV Ejection Fraction 2D Teich 57.0 % IVS Diastolic Thickness 1.3 cm LVPW Diastolic Thickness 1.3 cm LV Relative Wall Thickness 0.5 RV Internal Dim ED PLAX 2.8 cm 1.9 - 3.8 cm LVOT Diameter 1.8 cm Aortic Root Diameter 3.5 cm LA Systolic Diameter LX 4.3 cm 3.0 - 4.0 / 2.7 - 3.8 cm LA Volume 44.0 cm 18 - 58 / 22 - 52 cm Ascending Aorta Diameter 2.8 cm DOPPLER AV Peak Velocity 139.0 cm/s AV Peak Gradient 7.7 mmHg AV Mean Velocity 102.0 cm/s AV Mean Gradient 5.0 mmHg AV Velocity Time Integral 32.5 cm LVOT Peak Velocity 123.0 cm/s LVOT Peak Gradient 6.1 mmHg LVOT Mean Velocity 81.1 cm/s LVOT Mean Gradient 3.0 mmHg LVOT Velocity Time Integral 26.0 cm LVOT Stroke Volume 66.2 cm AV Area Cont Eq vti 2.0 cm AV Area Cont Eq pk 2.3 cm MV Peak Velocity 119.0 cm/s MV Peak Gradient 5.7 mmHg MV Mean Velocity 62.4 cm/s MV Mean Gradient 2.0 mmHg Mitral E Point Velocity 116.0 cm/s Mitral A Point Velocity 78.0 cm/s Mitral E to A Ratio 1.5 MV PHT Velocity 123.0 cm/s MV Deceleration Wilbarger 609.0 cm/s MV Pressure Half Time 60.6 ms MV Area PHT 3.6 cm MV Deceleration Time 148.0 ms TR Peak Velocity 278.0 cm/s TR Peak Gradient 30.9 mmHg Right Atrial Pressure 5.0 mmHg Pulmonary Artery Systolic Pressu 35.9 mmHg Right Ventricular Systolic Press 35.9 mmHg PV Peak Velocity 103.0 cm/s PV Peak Gradient 4.2 mmHg PV Mean Velocity 70.5 cm/s PV Mean Gradient 2.0 mmHg PV Velocity Time Integral 24.6 cm LV E' Lateral Velocity 8.8 cm/s Mitral E to LV E' Lateral Ratio 13.2 LV E' Septal Velocity 6.9 cm/s Mitral E to LV E' Septal Ratio 16.8
[2016-09-12 08:27] VITALS: BP 150/66
--- NOTE | 2016-09-12 10:22 | Cons- Cardiology ---
General Information and HPI Consulting Request Date of Consult: 09/12/16 Requested By: ALAN PAYNE M.D Reason for Consult: Recurrent syncope Source of Information: patient, family Exam Limitations: no limitations History of Present Illness: The patient is a 61-year-old male with a history of a membranous ventricular septal defect repair at age 12, hypertension, insulin-dependent diabetes, status post cardiac arrest in 2008 in the setting of DKA, cardiac catheterization that time demonstrated normal coronary arteries, he also had a brief episode of paroxysmal atrial fibrillation that time who now presents with syncope. The history is obtained from the patient and his who states that his initial episode of syncope occurred approximately 9 months ago when he was at a snf visiting a friend. He has had other episodes of syncope each one normally preceded by a flushing feeling. He loses consciousness for approximately a minute according to his . He recently had eye surgery and that same day had 2 episodes of syncope. He came to the emergency room here at [facility] and was felt to be secondary to the anesthesia he had received. Yesterday he had yet another episode of syncope. At that time he was sitting in a chair he was able to call to his stating he we go again and again lost consciousness for approximately 1 minute. There is no preceding chest pain shortness of breath or palpitations. There is no loss of bowel or bladder control. He again presented to the emergency room and is now placed on observation on telemetry. Of note is the fact that the patient had a recent echocardiogram May 2016 demonstrating EF of 55% with evidence of prior VSD repair without shunting. He also underwent a nuclear stress test in May demonstrated no evidence for ischemia. An event monitor demonstrated sinus rhythm with sinus bradycardia lowest rate of 59. His primary physician Dr. Suazo recently decreased his metoprolol tartrate to 25 mg daily. Allergies/Medications Allergies: Coded Allergies: No Known Allergies (06/27/16) Home Med List: Aspirin (Aspirin*) 81 MG TAB.CHEW 1 TAB PO DAILY HEART HEALTH (Reported) Atorvastatin Calcium (Lipitor) 40 MG TABLET 1 TAB PO DAILY CHOLESTEROL ( Reported) Atropine Sulfate in 0.9% NaCl (Atropine 0.01%-Ns Eye Drops) 0.01 % DROPS 1 GTT OP DAILY eye (Reported) [autologous serum] 1 DROP OS 4XDAILY FOR SUSPECTED VIRAL INFECTION (Reported) Furosemide 20 MG TABLET 1 TAB PO DAILY DIURETIC (Reported) Gatifloxacin (Zymaxid) 0.5 % DROPS 1 GTT OD 4 TIMES/DAY eye drops (Reported) Insulin Aspart (Novolog) 100 UNIT/ML VIAL 0 SC TIDAC/HS DM (Reported) Insulin Degludec (Tresiba Flextouch U-100) (Unknown Strength) INSULN.PEN 26 UNITS SC QHS DM (Reported) Levothyroxine Sodium 200 MCG TABLET 1 TAB PO DAILY AC THYROID (Reported) Lisinopril 40 MG TABLET 1 TAB PO DAILY BP (Reported) Metoprolol Tartrate 25 MG TABLET 1 TAB PO DAILY HEART (Reported) Prednisolone Acetate (Omnipred) 1 % DROPS.SUSP 1 GTT OS 4 TIMES/DAY eye ( Reported) Trifluridine 1 % DROPS 1 DROP OS 5 TIMES/DAY ANTIVIRAL (Reported) Current Medications: Current Medications Sig/Sadiq Start time Last Medication Dose Route Stop Time Status Admin Atorvastatin Calcium 40 MG 1700 09/12 1700 AC PO Atropine Sulfate 1 GTT SEE ADMIN CRITERIA 09/11 1930 AC 09/12 OPH 0957 Furosemide 20 MG DAILY 09/12 1000 AC 09/12 PO 0953 Gatifloxacin 1 GTT 4 TIMES/DAY 09/12 1000 AC OPH Heparin Sodium 5,000 UNIT Q8 09/11 2200 AC 09/12 (Porcine) SC 0600 Insulin Aspart 0 TIDAC 09/12 0800 AC SC Insulin Detemir 13 UNITS BID 09/11 2200 AC 09/12 SC 0953 Insulin Human Regular 8 UNITS ONCE ONE 09/11 1645 DC 09/11 SC 09/11 1646 1723 Levothyroxine Sodium 0.2 MG DAILY AC 09/12 0700 AC 09/12 PO 0653 Lisinopril 40 MG DAILY 09/12 1000 AC 09/12 PO 0953 Metoprolol Tartrate 12.5 MG BID 09/13 1000 DC PO Metoprolol Tartrate 12.5 MG BID 09/12 2200 AC PO Metoprolol Tartrate 25 MG DAILY 09/12 1000 DC 09/12 PO 0956 Non-Formulary 0 SEE ADMIN CRITERIA 09/12 0830 UNVr 09/12 Medication ANY 0957 Prednisolone 1 GTT 4 TIMES/DAY 09/11 1919 AC 09/12 OPH 0954 Review of Systems Review of Systems: Eyes no blurred or double vision Ears no deafness or ringing Nose and throat no recurrent sinusitis Lungs per history of present illness Heart per history of present illness Abdomen no nausea vomiting Musculoskeletal occasional muscle and joint pains Psych no anxiety or depression Neuro as per history of present illness Endocrine no heat or cold intolerance Past History Travel History Traveled to [place] past 21 day No Medical History Blood Transfusion Hx: No Neurological: peripheral neuropathy, OPTIC STROKE R HEMMORAGE L EYE EENT: cataracts, hearing loss, SCAR TISSUE REMOVED L EYE Cardiovascular: CAD, hypertension, 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 Psychosocial History Where Do You Live? Home Who Do You Live With? spouse Services at Home: None Primary Language: Micronesian Smoking Status: Never Smoked ETOH Use: denies use Illicit Drug Use: denies illicit drug use Exam & Diagnostic Data Vital Signs and I&O Vital Signs Date Time Temp Pulse Resp B/P B/P Pulse O2 O2 Flow FiO2 Mean Ox Delivery Rate 09/12 0956 150/66 09/12 0953 150/66 09/12 0827 98.0 61 18 150/66 92 09/11 2142 Room Air 09/11 1828 70 162/74 09/11 1550 97.2 60 18 171/86 93 Room Air Room Air 09/11 1343 63 153/83 09/11 1336 97 Room Air 09/11 1308 97.0 64 20 197/91 94 Room Air Intake & Output 09/12 1600 09/12 0800 09/12 0000 09/11 1600 09/11 0800 09/11 0000 Intake Total 100 100 Output Total 400 100 Balance 100 -300 -100 Intake, Oral 100 100 Output, Urine 400 100 Patient 178 lb 178 lb Weight Weight Reported by Patient Measurement Method Physical Exam: Patient is a well-developed ill-appearing male appearing in no acute distress HEENT is unremarkable Neck is supple there is no JVD Lungs are clear Heart regular rhythm S1 and S2 are normal no murmurs gallops or rubs Abdomen bowel sounds positive Extremities without edema Labs/Nilay Results: Laboratory Tests 09/12 09/12 09/11 0255 254 2024 Chemistry Sodium (137 - 145 mmol/L) 141 Potassium (3.5 - 5.1 mmol/L) 3.7 Chloride (98 - 107 mmol/L) 102 Carbon Dioxide (22 - 30 mmol/L) 35 H Anion Gap (5 - 16) 4 L BUN (9 - 20 mg/dL) 19 Creatinine (0.7 - 1.2 mg/dL) 0.8 Estimated GFR (>60 ml/min) > 60 BUN/Creatinine Ratio (7 - 25 %) 23.8 Troponin I (<0.11 ng/ml) < 0.01 < 0.01 Hematology CBC w Diff NO MAN DIFF REQ WBC (4.8 - 10.8 /CUMM) 4.7 L RBC (4.70 - 6.10 /CUMM) 4.10 L Hgb (14.0 - 18.0 G/DL) 12.3 L Hct (42 - 52 %) 37.9 L MCV (80.0 - 94.0 FL) 92.5 MCH (27.0 - 31.0 PG) 29.9 RDW (11.5 - 14.5 %) 16.2 H Plt Count (130 - 400 /CUMM) 135 MPV (7.4 - 10.4 FL) 11.4 H Gran % (42.2 - 75.2 %) 55.5 Lymphocytes % (20.5 - 51.1 %) 25.8 Monocytes % (1.7 - 9.3 %) 11.4 H Eosinophils % (0 - 5 %) 6.7 H Basophils % (0.0 - 2.0 %) 0.6 Absolute Granulocytes (1.4 - 6.5 /CUMM) 2.6 Absolute Lymphocytes (1.2 - 3.4 /CUMM) 1.2 Absolute Monocytes (0.10 - 0.60 /CUMM) 0.5 Absolute Eosinophils (0.0 - 0.7 /CUMM) 0.3 Absolute Basophils (0.0 - 0.2 /CUMM) 0 PUBS MCHC (33.0 - 37.0 G/DL) 32.3 L 09/11 09/11 09/11 1558 1410 1333 Chemistry Sodium (137 - 145 mmol/L) 137 Potassium (3.5 - 5.1 mmol/L) 4.0 Chloride (98 - 107 mmol/L) 98 Carbon Dioxide (22 - 30 mmol/L) 33 H Anion Gap (5 - 16) 6 BUN (9 - 20 mg/dL) 17 Creatinine (0.7 - 1.2 mg/dL) 0.8 Estimated GFR (>60 ml/min) > 60 BUN/Creatinine Ratio (7 - 25 %) 21.3 Glucose (65 - 99 mg/dL) 308 H Hemoglobin A1c (4.2 - 5.8 %) 10.0 H Calcium (8.4 - 10.2 mg/dL) 8.7 Iron (49 - 181 ug/dL) 60 TIBC (261 - 462 ug/dL) 254 L Ferritin (17.9 - 464 ng/mL) 78.0 Total Bilirubin (0.2 - 1.3 mg/dL) 0.9 AST (17 - 59 U/L) 23 ALT (21 - 72 U/L) 34 Alkaline Phosphatase (< 127 U/L) 99 Troponin I (<0.11 ng/ml) < 0.01 Total Protein (6.3 - 8.2 g/dL) 5.8 L Albumin (3.5 - 5.0 g/dL) 3.2 L Globulin (1.9 - 4.2 gm/dL) 2.6 Albumin/Globulin Ratio (1.1 - 2.2 %) 1.2 TSH (0.270 - 4.200 uIU/mL) 2.780 Prolactin (3.7 - 17.9 ng/mL) 18.6 H Hematology CBC w Diff NO MAN DIFF REQ WBC (4.8 - 10.8 /CUMM) 4.1 L RBC (4.70 - 6.10 /CUMM) 4.24 L Hgb (14.0 - 18.0 G/DL) 13.0 L Hct (42 - 52 %) 38.7 L MCV (80.0 - 94.0 FL) 91.3 MCH (27.0 - 31.0 PG) 30.6 RDW (11.5 - 14.5 %) 15.9 H Plt Count (130 - 400 /CUMM) 130 MPV (7.4 - 10.4 FL) 11.4 H Gran % (42.2 - 75.2 %) 60.6 Lymphocytes % (20.5 - 51.1 %) 21.8 Monocytes % (1.7 - 9.3 %) 10.4 H Eosinophils % (0 - 5 %) 6.8 H Basophils % (0.0 - 2.0 %) 0.4 Absolute Granulocytes (1.4 - 6.5 /CUMM) 2.5 Absolute Lymphocytes (1.2 - 3.4 /CUMM) 0.9 L Absolute Monocytes (0.10 - 0.60 /CUMM) 0.4 Absolute Eosinophils (0.0 - 0.7 /CUMM) 0.3 Absolute Basophils (0.0 - 0.2 /CUMM) 0 PUBS MCHC (33.0 - 37.0 G/DL) 33.5 Toxicology Urine Opiates Screen (>2000 NG/ML) < 100.00 Methadone Screen (>300 NG/ML) < 40 Barbiturate Screen (>200 NG/ML) < 60 Ur Phencyclidine Scrn (>25 NG/ML) < 6.00 Amphetamines Screen (>1000 NG/ML) < 100 U Benzodiazepines Scrn (>200 NG/ML) < 85 Urine Cocaine Screen (>300 NG/ML) < 50 Urine Cannabis Screen (>50 NG/ML) < 5.00 Diagnostic Data EKG Results Sinus rhythm first degree AV block nonspecific IVCD nonspecific ST-T changes Other Results Echocardiogram CONCLUSIONS Normal left ventricular systolic function with mild concentric hypertrophy. Mild left atrial enlargement. No significant valvular abnormalities noted. Rubin Landaverde M.D. Assessment/Plan Assessment/Plan 1. Recurrent syncope of questionable etiology. His episodes may be vasovagal but I am concerned that given his first-degree AV block and nonspecific IVCD that he may be prone to episodes of complete heart block. A recent event monitor only demonstrated sinus bradycardia to a heart rate of 59. Recent workup demonstrated normal LV function on echocardiogram and no evidence for ischemia on recent nuclear stress test. 2. Hypertension 3. History of cardiac arrest in setting of DKA in 2008 with brief atrial fibrillation at that time. Cardiac catheterization demonstrated normal coronary arteries. 4. Insulin requiring diabetes 5. History of membranous VSD repair at age 12 Recommendations 1. I recommend changing his metoprolol dosing to 12.5 mg twice a day 2. Continue current dose of lisinopril 3. Had a long discussion with the patient and his since he is having recurrent episodes of syncope I feel that a implantable loop recorder is indicated to determine if he indeed has significant arrhythmias. 4. Continue to monitor on telemetry Thank you for allowing [facility] to participate in the care of your patient. Consult Acknowledgment - Thank you for your consult request.
--- NOTE | 2016-09-12 14:04 | Cons- Neurology ---
General Information and HPI Consulting Request Date of Consult: 09/12/16 Requested By: ALAN PAYNE M.D Reason for Consult: Recurrent syncope Source of Information: patient, family, old records Exam Limitations: no limitations History of Present Illness: This is a 61 year old man with multiple cardiovascular risk factors, previous childhood correction of a VSD, previous cardiac arrest (2008), previous Afib and current 1st degree AV blck, who over the last year has had about 6 independent events in which he suddenly passed out. Prior to these events he feels a messer through his head and then collapses. The events do not seem to be dependent on change in position and he has had some while sitting and lying down. Two such events occurred last Sunday after eye surgery upon returning home and another one yesterday. Per his spouse he doesn't convulse, bite his tongue, wet himself but does have his eyes open when he is unresponsive. When he recovers he is exhausted but not confused. 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 No history of trauma to the head or cerebral infection. No history of any potential seizure auras. Allergies/Medications Allergies: Coded Allergies: No Known Allergies (06/27/16) Home Med List: Aspirin (Aspirin*) 81 MG TAB.CHEW 1 TAB PO DAILY HEART HEALTH (Reported) Atorvastatin Calcium (Lipitor) 40 MG TABLET 1 TAB PO DAILY CHOLESTEROL ( Reported) Atropine Sulfate in 0.9% NaCl (Atropine 0.01%-Ns Eye Drops) 0.01 % DROPS 1 GTT OP DAILY eye (Reported) [autologous serum] 1 DROP OS 4XDAILY FOR SUSPECTED VIRAL INFECTION (Reported) Furosemide 20 MG TABLET 1 TAB PO DAILY DIURETIC (Reported) Gatifloxacin (Zymaxid) 0.5 % DROPS 1 GTT OD 4 TIMES/DAY eye drops (Reported) Insulin Aspart (Novolog) 100 UNIT/ML VIAL 0 SC TIDAC/HS DM (Reported) Insulin Degludec (Tresiba Flextouch U-100) (Unknown Strength) INSULN.PEN 26 UNITS SC QHS DM (Reported) Levothyroxine Sodium 200 MCG TABLET 1 TAB PO DAILY AC THYROID (Reported) Lisinopril 40 MG TABLET 1 TAB PO DAILY BP (Reported) Metoprolol Tartrate 25 MG TABLET 1 TAB PO DAILY HEART (Reported) Prednisolone Acetate (Omnipred) 1 % DROPS.SUSP 1 GTT OS 4 TIMES/DAY eye ( Reported) Trifluridine 1 % DROPS 1 DROP OS 5 TIMES/DAY ANTIVIRAL (Reported) Current Medications: Current Medications Sig/Sadiq Start time Last Medication Dose Route Stop Time Status Admin Artificial Tears 2 GTT 4 TIMES/DAY 09/12 1400 AC OPH Atorvastatin Calcium 40 MG 1700 09/12 1700 AC PO Atropine Sulfate 1 GTT BID 09/12 2200 AC OPH Atropine Sulfate 1 GTT SEE ADMIN CRITERIA 09/11 1930 DC 09/12 OPH 0957 Furosemide 20 MG DAILY 09/12 1000 AC 09/12 PO 0953 Gatifloxacin 1 GTT 4 TIMES/DAY 09/12 1000 AC 09/12 OPH 1312 Heparin Sodium 5,000 UNIT Q8 09/11 2200 AC 09/12 (Porcine) SC 1312 Insulin Aspart 0 TIDAC 09/12 0800 AC 09/12 SC 1236 Insulin Detemir 11 UNITS BID 09/13 1000 AC SC Insulin Detemir 8 UNITS 2200 09/12 2200 AC SC 09/12 2201 Insulin Detemir 13 UNITS BID 09/11 2200 DC 09/12 SC 0953 Insulin Human Regular 8 UNITS ONCE ONE 09/11 1645 DC 09/11 SC 09/11 1646 1723 Levothyroxine Sodium 0.2 MG DAILY AC 09/12 0700 AC 09/12 PO 0653 Lisinopril 40 MG DAILY 09/12 1000 AC 09/12 PO 0953 Metoprolol Tartrate 12.5 MG BID 09/13 1000 DC PO Metoprolol Tartrate 12.5 MG BID 09/12 2200 AC PO Metoprolol Tartrate 25 MG DAILY 09/12 1000 DC 09/12 PO 0956 Non-Formulary 0 SEE ADMIN CRITERIA 09/12 0830 DC 09/12 Medication ANY 0957 Prednisolone 1 GTT 4 TIMES/DAY 09/11 1919 AC 09/12 OPH 1313 Trifluridine 1 GTT Q3H 09/12 1400 AC OPH Past History Travel History Traveled to [place] past 21 day No Medical History Blood Transfusion Hx: No Neurological: peripheral neuropathy, OPTIC STROKE R HEMMORAGE L EYE EENT: cataracts, hearing loss, SCAR TISSUE REMOVED L EYE Cardiovascular: CAD, hypertension, 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 Psychosocial History Where Do You Live? Home Who Do You Live With? spouse Services at Home: None Primary Language: Puerto Rican Smoking Status: Never Smoked ETOH Use: denies use Illicit Drug Use: denies illicit drug use Exam & Diagnostic Data Vital Signs and I&O Vital Signs Date Time Temp Pulse Resp B/P B/P Pulse O2 O2 Flow FiO2 Mean Ox Delivery Rate 09/12 0956 150/66 09/12 0953 150/66 09/12 0827 98.0 61 18 150/66 92 09/11 2142 Room Air 09/11 1828 70 162/74 09/11 1550 97.2 60 18 171/86 93 Room Air Room Air Intake & Output 09/12 1600 09/12 0800 09/12 0000 Intake Total 100 100 Output Total 400 Balance 100 -300 Intake, Oral 100 100 Output, Urine 400 Patient 178 lb Weight Physical Exam: Alert, and oriented x3. Good attention and concentration. Pleasant and in no distress. S1 and S2 normal, RRR. EOMI, JOSE, no nystagmus, face symmetric, tongue midline, uvula raises in midline, V1-V3 sensation is normal, hearing is normal, TPZ strong. Strength is 5 /5 throughout the distribution, questionable drift non-pronator type on right. Tapping equal. FNF normal. VF full. Sensory exam reveals +Romberg with loss of vibration consistent with neuropathy. There is atrophy in the dorsal aspect of both hands within the first interdigit space. No fasciculations noted. Gait is stable. Last 48 Hours of Lab Results: Laboratory Tests 09/12 09/12 09/11 0255 0255 2024 Chemistry Sodium (137 - 145 mmol/L) 141 Potassium (3.5 - 5.1 mmol/L) 3.7 Chloride (98 - 107 mmol/L) 102 Carbon Dioxide (22 - 30 mmol/L) 35 H Anion Gap (5 - 16) 4 L BUN (9 - 20 mg/dL) 19 Creatinine (0.7 - 1.2 mg/dL) 0.8 Estimated GFR (>60 ml/min) > 60 BUN/Creatinine Ratio (7 - 25 %) 23.8 Troponin I (<0.11 ng/ml) < 0.01 < 0.01 Hematology CBC w Diff NO MAN DIFF REQ WBC (4.8 - 10.8 /CUMM) 4.7 L RBC (4.70 - 6.10 /CUMM) 4.10 L Hgb (14.0 - 18.0 G/DL) 12.3 L Hct (42 - 52 %) 37.9 L MCV (80.0 - 94.0 FL) 92.5 MCH (27.0 - 31.0 PG) 29.9 RDW (11.5 - 14.5 %) 16.2 H Plt Count (130 - 400 /CUMM) 135 MPV (7.4 - 10.4 FL) 11.4 H Gran % (42.2 - 75.2 %) 55.5 Lymphocytes % (20.5 - 51.1 %) 25.8 Monocytes % (1.7 - 9.3 %) 11.4 H Eosinophils % (0 - 5 %) 6.7 H Basophils % (0.0 - 2.0 %) 0.6 Absolute Granulocytes (1.4 - 6.5 /CUMM) 2.6 Absolute Lymphocytes (1.2 - 3.4 /CUMM) 1.2 Absolute Monocytes (0.10 - 0.60 /CUMM) 0.5 Absolute Eosinophils (0.0 - 0.7 /CUMM) 0.3 Absolute Basophils (0.0 - 0.2 /CUMM) 0 PUBS MCHC (33.0 - 37.0 G/DL) 32.3 L 09/11 09/11 09/11 1558 1410 1333 Chemistry Sodium (137 - 145 mmol/L) 137 Potassium (3.5 - 5.1 mmol/L) 4.0 Chloride (98 - 107 mmol/L) 98 Carbon Dioxide (22 - 30 mmol/L) 33 H Anion Gap (5 - 16) 6 BUN (9 - 20 mg/dL) 17 Creatinine (0.7 - 1.2 mg/dL) 0.8 Estimated GFR (>60 ml/min) > 60 BUN/Creatinine Ratio (7 - 25 %) 21.3 Glucose (65 - 99 mg/dL) 308 H Hemoglobin A1c (4.2 - 5.8 %) 10.0 H Calcium (8.4 - 10.2 mg/dL) 8.7 Iron (49 - 181 ug/dL) 60 TIBC (261 - 462 ug/dL) 254 L Ferritin (17.9 - 464 ng/mL) 78.0 Total Bilirubin (0.2 - 1.3 mg/dL) 0.9 AST (17 - 59 U/L) 23 ALT (21 - 72 U/L) 34 Alkaline Phosphatase (< 127 U/L) 99 Troponin I (<0.11 ng/ml) < 0.01 Total Protein (6.3 - 8.2 g/dL) 5.8 L Albumin (3.5 - 5.0 g/dL) 3.2 L Globulin (1.9 - 4.2 gm/dL) 2.6 Albumin/Globulin Ratio (1.1 - 2.2 %) 1.2 TSH (0.270 - 4.200 uIU/mL) 2.780 Prolactin (3.7 - 17.9 ng/mL) 18.6 H Hematology CBC w Diff NO MAN DIFF REQ WBC (4.8 - 10.8 /CUMM) 4.1 L RBC (4.70 - 6.10 /CUMM) 4.24 L Hgb (14.0 - 18.0 G/DL) 13.0 L Hct (42 - 52 %) 38.7 L MCV (80.0 - 94.0 FL) 91.3 MCH (27.0 - 31.0 PG) 30.6 RDW (11.5 - 14.5 %) 15.9 H Plt Count (130 - 400 /CUMM) 130 MPV (7.4 - 10.4 FL) 11.4 H Gran % (42.2 - 75.2 %) 60.6 Lymphocytes % (20.5 - 51.1 %) 21.8 Monocytes % (1.7 - 9.3 %) 10.4 H Eosinophils % (0 - 5 %) 6.8 H Basophils % (0.0 - 2.0 %) 0.4 Absolute Granulocytes (1.4 - 6.5 /CUMM) 2.5 Absolute Lymphocytes (1.2 - 3.4 /CUMM) 0.9 L Absolute Monocytes (0.10 - 0.60 /CUMM) 0.4 Absolute Eosinophils (0.0 - 0.7 /CUMM) 0.3 Absolute Basophils (0.0 - 0.2 /CUMM) 0 PUBS MCHC (33.0 - 37.0 G/DL) 33.5 Toxicology Urine Opiates Screen (>2000 NG/ML) < 100.00 Methadone Screen (>300 NG/ML) < 40 Barbiturate Screen (>200 NG/ML) < 60 Ur Phencyclidine Scrn (>25 NG/ML) < 6.00 Amphetamines Screen (>1000 NG/ML) < 100 U Benzodiazepines Scrn (>200 NG/ML) < 85 Urine Cocaine Screen (>300 NG/ML) < 50 Urine Cannabis Screen (>50 NG/ML) < 5.00 Assessment/Plan Assessment: 61 year old man with a long cardiac history with presentation highly suspicious for a possible transient heart block leading to syncope. For this he will have a loop monitor implanted. Seizures are still a possibility. To rule out complex partial seizures would recommend an EEG. Recommendations: 1. EEG 2. If EEG negative and cardiac workup unyielding would only then get 24 hour EEG and MRI of the brain. 3. C/w cardiac workup. 4. Orthostatic BP checks. YC Consult Acknowledgment - Thank you for your consult request.
--- NOTE | 2016-09-12 14:18 | ELECTROENCEPHALOGRAM REPORT ---
Electroencephalogram Report Electroencephalogram Results Date of service: 09/12/16 Attending MD: ALAN PAYNE M.D Senior Brand Manager: Bandar EEG Number: [id number] Test Utilizes: 10-20 system, 21 lead 18 channel digital recording Pertinent Hx/Physical/Neuro Findings/Clin Diagnosis: 61 year old patient being evaluated for blackouts, syncopal episodes versus seizures. Inpatient Medications: Current Medications Sig/Sadiq Start time Last Medication Dose Route Stop Time Status Admin Atorvastatin Calcium 40 MG 1700 09/12 1700 AC PO Atropine Sulfate 1 GTT SEE ADMIN CRITERIA 09/11 1930 AC 09/12 OPH 0957 Furosemide 20 MG DAILY 09/12 1000 AC 09/12 PO 0953 Gatifloxacin 1 GTT 4 TIMES/DAY 09/12 1000 AC 09/12 OPH 1113 Heparin Sodium 5,000 UNIT Q8 09/11 2200 AC 09/12 (Porcine) SC 0600 Insulin Aspart 0 TIDAC 09/12 0800 AC SC Insulin Detemir 13 UNITS BID 09/11 2200 AC 09/12 SC 0953 Insulin Human Regular 8 UNITS ONCE ONE 09/11 1645 DC 09/11 SC 09/11 1646 1723 Levothyroxine Sodium 0.2 MG DAILY AC 09/12 0700 AC 09/12 PO 0653 Lisinopril 40 MG DAILY 09/12 1000 AC 09/12 PO 0953 Metoprolol Tartrate 12.5 MG BID 09/13 1000 DC PO Metoprolol Tartrate 12.5 MG BID 09/12 2200 AC PO Metoprolol Tartrate 25 MG DAILY 09/12 1000 DC 09/12 PO 0956 Non-Formulary 0 SEE ADMIN CRITERIA 09/12 0830 UNVr 09/12 Medication ANY 0957 Prednisolone 1 GTT 4 TIMES/DAY 09/11 1919 AC 09/12 OPH 0954 Interpretation: Background is composed of well-formed low to moderate amplitude 10 Hz posterior alpha mixed with frontally dominant beta. Small amount of muscle artifact is seen intermittently. There are occasional bursts of higher amplitude sharp activity sometimes swallow followed by slow waves which occur in a generalized pattern. They somewhat resemble vertex waves but occur when the background suggests full wakefulness. There are no lateralized or focal abnormalities. HV was deferred due to a history of cardiac problems and photic deferred due to recent eye surgery. Impression: Mildly abnormal due to occasional bursts of generalized paroxysmal slow sharp activity which could be potentially epileptiform. These findings are not typical or definitive. Clinical correlation and or a prolonged 24 hour ambulatory EEG recommended.
--- NOTE | 2016-09-12 17:02 | Cons- Endocrinology ---
General Information and HPI Consulting Request Date of Consult: 09/12/16 Requested By: medical team Reason for Consult: management of DM. Source of Information: patient Exam Limitations: no limitations History of Present Illness: 61 year old man with past medical history of CAD, Cardiac Arrest, hypertension, hyperlipidemia, diabetes on insulin, hypothyroidism, was admitted for recurrent episodes of "passing out". As per patient, his glucose level wasn't low during those episodes. At home, he was on Tresiba 26 units daily and Novolog between 6-8 units before meals. His recent HbA1c was 10%. In hospital, he was put on Levemir 13 units twice a day and Novolog coverage before meals. His FSGs were 401, 389, 317, 161 and 269. Overnight, his glucose level was down to 76. Patient will have a procedure done tomorrow. He is going to be kept NPO after midnight tonight. Allergies/Medications Allergies: Coded Allergies: No Known Allergies (06/27/16) Home Med List: Aspirin (Aspirin*) 81 MG TAB.CHEW 1 TAB PO DAILY HEART HEALTH (Reported) Atorvastatin Calcium (Lipitor) 40 MG TABLET 1 TAB PO DAILY CHOLESTEROL ( Reported) Atropine Sulfate in 0.9% NaCl (Atropine 0.01%-Ns Eye Drops) 0.01 % DROPS 1 GTT OP DAILY eye (Reported) [autologous serum] 1 DROP OS 4XDAILY FOR SUSPECTED VIRAL INFECTION (Reported) Furosemide 20 MG TABLET 1 TAB PO DAILY DIURETIC (Reported) Gatifloxacin (Zymaxid) 0.5 % DROPS 1 GTT OD 4 TIMES/DAY eye drops (Reported) Insulin Aspart (Novolog) 100 UNIT/ML VIAL 0 SC TIDAC/HS DM (Reported) Insulin Degludec (Tresiba Flextouch U-100) (Unknown Strength) INSULN.PEN 26 UNITS SC QHS DM (Reported) Levothyroxine Sodium 200 MCG TABLET 1 TAB PO DAILY AC THYROID (Reported) Lisinopril 40 MG TABLET 1 TAB PO DAILY BP (Reported) Metoprolol Tartrate 25 MG TABLET 1 TAB PO DAILY HEART (Reported) Prednisolone Acetate (Omnipred) 1 % DROPS.SUSP 1 GTT OS 4 TIMES/DAY eye ( Reported) Trifluridine 1 % DROPS 1 DROP OS 5 TIMES/DAY ANTIVIRAL (Reported) Review of Systems Review of Systems Constitutional: Reports: see HPI. Cardiovascular: Denies: chest pain. Respiratory: Denies: short of breath. GI: Denies: abdominal pain. Neurological/Psychological: Reports: see HPI. 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 Psychosocial History Where Do You Live? Home Who Do You Live With? spouse Services at Home: None Primary Language: Nepali Smoking Status: Never Smoked ETOH Use: denies use Illicit Drug Use: denies illicit drug use Exam & Diagnostic Data Last 24 Hrs of Vital Signs/I&O Vital Signs Date Time Temp Pulse Resp B/P B/P Pulse O2 O2 Flow FiO2 Mean Ox Delivery Rate 09/12 0956 150/66 09/12 0953 150/66 09/12 0827 98.0 61 18 150/66 92 09/11 2142 Room Air 09/11 1828 70 162/74 Intake & Output 09/12 1600 09/12 0800 09/12 0000 Intake Total 400 100 100 Output Total 550 400 Balance -150 100 -300 Intake, Oral 400 100 100 Output, Urine 550 400 Patient 178 lb Weight Physical Exam General Appearance: no apparent distress Neck: normal inspection Cardiovascular: regular rate/rhythm Gastrointestinal: soft Extremities: chronic skin changes along with mild edema Labs/Nilay Results: Laboratory Tests 09/12 09/12 09/11 0255 0255 2024 Chemistry Sodium (137 - 145 mmol/L) 141 Potassium (3.5 - 5.1 mmol/L) 3.7 Chloride (98 - 107 mmol/L) 102 Carbon Dioxide (22 - 30 mmol/L) 35 H Anion Gap (5 - 16) 4 L BUN (9 - 20 mg/dL) 19 Creatinine (0.7 - 1.2 mg/dL) 0.8 Estimated GFR (>60 ml/min) > 60 BUN/Creatinine Ratio (7 - 25 %) 23.8 Troponin I (<0.11 ng/ml) < 0.01 < 0.01 Hematology CBC w Diff NO MAN DIFF REQ WBC (4.8 - 10.8 /CUMM) 4.7 L RBC (4.70 - 6.10 /CUMM) 4.10 L Hgb (14.0 - 18.0 G/DL) 12.3 L Hct (42 - 52 %) 37.9 L MCV (80.0 - 94.0 FL) 92.5 MCH (27.0 - 31.0 PG) 29.9 RDW (11.5 - 14.5 %) 16.2 H Plt Count (130 - 400 /CUMM) 135 MPV (7.4 - 10.4 FL) 11.4 H Gran % (42.2 - 75.2 %) 55.5 Lymphocytes % (20.5 - 51.1 %) 25.8 Monocytes % (1.7 - 9.3 %) 11.4 H Eosinophils % (0 - 5 %) 6.7 H Basophils % (0.0 - 2.0 %) 0.6 Absolute Granulocytes (1.4 - 6.5 /CUMM) 2.6 Absolute Lymphocytes (1.2 - 3.4 /CUMM) 1.2 Absolute Monocytes (0.10 - 0.60 /CUMM) 0.5 Absolute Eosinophils (0.0 - 0.7 /CUMM) 0.3 Absolute Basophils (0.0 - 0.2 /CUMM) 0 PUBS MCHC (33.0 - 37.0 G/DL) 32.3 L Assessment/Plan Assessment/Plan 61 year old man with past medical history of CAD, Cardiac Arrest, hypertension, hyperlipidemia, diabetes on insulin, hypothyroidism, was admitted for recurrent episodes of "passing out". As per patient, his glucose level wasn't low during those episodes. At home, he was on Tresiba 26 units daily and Novolog between 6- 8 units before meals. His recent HbA1c was 10%. In hospital, he was put on Levemir 13 nits twice a day and Novolog coverage before meals. His glucose level was borderline low last night after he received Levemir 13 units. Patient will be kept NPO after midnight tonight. Plan: 1. Decrease Levemir to 8 units tonight; 2. starting tomorrow, he will be on Levemir 11 units twice a day; 3. adjust Novolog coverage before meals-- detail see the inpatient DM order; 4. monitor FSGs. will follow. Inpatient Diabetes Orders Before Each Meal: Bolus Insulin: Novolog < 80 mg/dl: no coverage 80-100 mg/dl: 4 units 101-120 mg/dl: 4 units 121-150 mg/dl: 4 units 151-200 mg/dl: 5 units 201-250 mg/dl: 6 units 251-300 mg/dl: 7 units 301-350 mg/dl: 8 units 351-400 mg/dl: 9 units > 400 mg/dl: 10 units Consult Acknowledgment - Thank you for your consult request.
[2016-09-12 17:27] VITALS: BP 160/100
[2016-09-12 22:00] VITALS: BP 142/72
[2016-09-13] MEDS ORDERED: METOPROLOL TART25 M1 PO ×2 (07:15→11:42)
[2016-09-13] MEDS ORDERED: LEVEMIR100 UNIT/1 SC ×2 (07:15→11:42)
--- NOTE | 2016-09-13 07:22 | Patient Discharge Instructions ---
Discharge Instructions General Discharge Information Special Instructions: Follow up with Dr. Velazco/Dr. Yoder for further evaluation of any cardiac arrhythmia and interogation of your loop recorder. Follow up with Dr. Copeland for further control of your diabetes. Take Novolog/ Levemir as directed, stop taking Tresiba. Follow up with Dr. Oden for further neurologic testing. Follow up with Dr. Suazo sometime after discharge, inform him of your recent hospitalization. Start taking Metoprolol at its new dose and directions. Please resume Aspirin as directed by your field map technician. Acute Coronary Syndrome Inclusion Criteria At DC or during hospital stay patient has or had the following: ACS DIAGNOSIS No Discharge Core Measures Meds if any: Prescribed or Continued at Discharge Meds if any: NOT Prescribed or Continued at Discharge Congestive Heart Failure Inclusion Criteria At DC or during hospital stay patient has or had the following: CHF DIAGNOSIS No Discharge Core Measures Meds if any: Prescribed or Continued at Discharge Meds if any: NOT Prescribed or Continued at Discharge Cerebrovascular accident Inclusion Criteria At DC or during hospital stay patient has or had the following: CVA/TIA Diagnosis No Discharge Core Measures Meds if any: Prescribed or Continued at Discharge Meds if any: NOT Prescribed or Continued at Discharge Venous thromboembolism Inclusion Criteria VTE Diagnosis No VTE Type NONE VTE Confirmed by (Test) NONE Discharge Core Measures - Per Current guidelines, there needs to be overlap - treatment for the first 5 days of Warfarin therapy. - If discharged on Warfarin prior to 5 days of - overlap therapy, the patient will need to be - assessed for post discharge needs including - *Post discharge parental anticoagulation - *Warfarin and/or parental anticoagulation education - *Follow up date to check INR post discharge At least 5 days overlap therapy as Inpatient No Meds if any: Prescribed or Continued at Discharge Note: Overlap Therapy is Warfarin and Anticoagulant Meds if any: NOT Prescribed or Continued at Discharge
--- NOTE | 2016-09-13 07:24 | PN-Observation ---
JACQUELINE ISABEL MD 09/13/16 0724: Observation Note Observation Note _ I have personally examined GUILLE URBAN. him disposition is uncertain at this time. Before a determination can be made, he requires continued observation for the following reasons: * Loop recorder placement Assessment/Plan Assessment: 61 year old man with multiple medical problems significant for CAD, Cardiac Arrest with ICU admission secondary to DKA, HTN, HLD seen for evaluation of recurrent episodes of syncope. Patient has been seen and evaluated by the [facility] multiple over the past year for multiple vague neurological complaints that the patient attributes to his 'high blood sugars'. Patient has been reportedly referred to an corporate security officer but has not pursued evaluation stating financial limiations. Patient was placed under observation on the telemetry floor pending further evaluation. #Recurrent Syncope #History of Hyperglycemia with DKA #Insulin-dependent Diabetes Mellitus #Coronary Artery Disease #History of Cardia Arrest #Hypertension Patient with extensive cardiovascular history and poorly controlled diabetes mellitus seen for evaluation of vague neurologic complaints where patient "passes out". Vitals signs upon initial evaluation were significant for elevated blood pressures and were otherwise normal. Physical examination was including a neurology, cardiopulmonary, and abdominal examination was grossly unremarkable other than 2+ bilateral nonpitting edema and right sided winged scapula. Lab work demontrated a normal CBC/BEP/LFTs/UTox, glucose was > 300 and first troponin was negative. EKG demonstrated normal sinus rhythm and chronic diffuse ST segmenet changes. Given his vague symptoms and poorly controlled diabetes it is possible patient is having hypo/hyperglycemic related disease, however given his recent unintentional weight loss and new onset syncope vs seizures etiologies of seizure and syncope should be ruled out with possible considerations for occult cancers. Patient was seen and evaluation by cardiology whom determind that patient would benefit from a loop recorder, patient is to have one placed tomorrow morning. EEG was performed and neurology consultation took place; EEG was grossly unremarkable however patient will require outpatient follow up with 24-hour EEG and possible MRI imaging for which a referral is being made. Patient underwent placement of a loop recorder and is to be discharged to home with extensive instructions for outpatient evaluation. -Telemetry -Seizure/Fall precautions -Accuchecks TIDAC/HS -Novolog SSI/Levemir/Fingersticks -Metoprolol Tartrate 25mg PO Daily -Lisinopril 40mg PO Daily -Lasix 20mg PO Daily -Neurology consult -Cardiology consult #Recent Cataract Surgery Patient of eye physicians Dr. Yadav and Dr. Mcclain. Patient was instructed to avoid using aspirin after his surgery last week to avoid any associated bleeding. -Hold aspirin, confirm with patient fruit checker when to restart -Continue eye drops #Hyperlipidemia-Atorvastatin 40mg PO Daily #Hypothyroidism-Levothyroxin 200mcg PO Daily Diet-Diabetic Diet DVT PPx-Subcutaneous Heparin Code Status-FULL CODE Problem List: 1. Syncope Consulting Request: Consulting Specialty: Cardiology Subjective Follow-up For: Syncope Tele-Events Since Last Visit: Sinus Bradycardia / NSR HR 59-64 1st degree AVB Subjective: Patient seen and examined. He is seen lying flat in bed resting comfortably. He appears to be in no acute distress. He reports feeling well and denies any further episodes of syncope. He is anxious about his procedure later this morning but otherwise has no further questions about it at this time. Additionally he denies any fever, chills, chest pain, palpitations, shortness of breath. Review of Systems Constitutional: Reports: see HPI. Objective Last 24 Hrs of Vital Signs/I&O Vital Signs Date Time Temp Pulse Resp B/P B/P Pulse O2 O2 Flow FiO2 Mean Ox Delivery Rate 09/13 0834 98.3 68 18 148/90 94 Room Air 09/12 2200 97.0 79 20 142/72 96 09/12 2159 79 140/72 09/12 1727 98.0 63 18 160/100 97 Intake & Output 09/13 1600 09/13 0800 09/13 0000 Intake Total 120 Output Total 400 Balance -400 120 Intake, Oral 120 Number 2 Bowel Movements Output, Urine 400 Physical Exam General Appearance: Alert, Oriented X3, Cooperative, No Acute Distress Other Physical Findings: General- well developed, well nourished middled aged man in no acute distress HEENT- NCAT, PERRL, EOMI, anicteric sclera, left eye mildly injected Chest- S1, S2 w/o m/g/r Lung- CTA bilaterally Abdomen- Soft, nontender, nondistended, bowel sounds intact Neuro- Awake and alert, CN II-XII grossly intact, gait/speech normal Ext- normal pulses, no cyanosis/clubbing/edema ALAN PAYNE MD 09/13/16 1139: Observation Note Observation Note _ I have personally examined GUILLE URBAN. him disposition is uncertain at this time. Before a determination can be made, he requires continued observation for the following reasons []. Objective Last 24 Hrs of Vital Signs/I&O Vital Signs Date Time Temp Pulse Resp B/P B/P Pulse O2 O2 Flow FiO2 Mean Ox Delivery Rate 09/13 1132 146/74 09/13 1132 146/74 09/13 0834 98.3 68 18 148/90 94 Room Air 09/12 2200 97.0 79 20 142/72 96 09/12 2159 79 140/72 09/12 1727 98.0 63 18 160/100 97 Intake & Output 09/13 1600 09/13 0800 09/13 0000 Intake Total 120 Output Total 400 Balance -400 120 Intake, Oral 120 Number 2 Bowel Movements Output, Urine 400 Addendum Addendum Patient seen and examined. Resting comfortably and not in any acute distress. No issues overnight. No events on telemetry monitoring. He is alert and oriented 3. Ambulating freely. A [employer] loop recorder was placed this morning medically cardiology service. He'll be following up as an outpatient. He was also seen by the neurology service and will scheduled for a 24-hour EEG as an outpatient. Hopefully with the studies [place] to determine the cause of his recurrent syncope episodes. This is unexplained to the patient and his . Endocrinology follow-up is also appreciated and he will be started on Levemir insulin as an outpatient. Patient has been advised to hold his aspirin as recommended by his fruit checker until he is cleared to resume this.
--- NOTE | 2016-09-13 08:33 | PN- Diabetes ---
Assessment/Plan Assessment: 61 year old man with past medical history of CAD, Cardiac Arrest, hypertension, hyperlipidemia, diabetes on insulin, hypothyroidism, was admitted for recurrent episodes of "passing out". As per patient, his glucose level wasn't low during those episodes. At home, he was on Tresiba 26 units daily and Novolog between 6- 8 units before meals. His recent HbA1c was 10%. Novolog coverage before meals was adjusted yesterday. He has been kept NPO since midnight for procedure. He received Levemir 8 units last night. His FSGs were 156, 142 and 111. Plan: 1. After the procedure is done and when he is ready to eat, he will be on Levemir 11 units twice a day. 2. he will continue the current Novolog coverage before meals when he is ready to eat. 3. If patient is medically stable for discharge, he will go home on Levemir 11 units twice a day and the current Novolog coverage before meals. 4. f/u in office after discharge. Subjective Subjective: He feels well this morning and his glucose level has been stable at this point. Objective Last 24 Hrs of Vital Signs/I&O Vital Signs Date Time Temp Pulse Resp B/P B/P Pulse O2 O2 Flow FiO2 Mean Ox Delivery Rate 09/12 2200 97.0 79 20 142/72 96 09/12 2159 79 140/72 09/12 1727 98.0 63 18 160/100 97 09/12 0956 150/66 09/12 0953 150/66 Intake & Output 09/13 1600 09/13 0800 09/13 0000 Intake Total 120 Output Total 400 Balance -400 120 Intake, Oral 120 Number 2 Bowel Movements Output, Urine 400
[2016-09-13 08:34] VITALS: BP 148/90
--- NOTE | 2016-09-13 11:14 | Proc Note Cardiology ---
Cardiology Procedure Procedure Date: 09/13/16 Cardiology Procedure(s): Insertion of a LINQ loop recorder Pre-Operative Diagnosis: syncope Post-Operative Diagnosis: syncope Estimated Blood Loss: scant Anesthesia: local only Procedure Findings: Under usual sterile conditions in the [facility] invasive procedures room, the patient was prepped and draped. The left pectoral area in the region of device placement was anesthetized using subcutaneous lidocaine infiltration. Following a small prick incision, an incision was made with the Reveal LINQ blade. The device was then inserted using the provided insertion tool without difficulty. Device telemetry was then confirmed prior to closure. Closure was performed using nonabsorbable suture and Steri-Strip. Device model: [employer] Reveal LINQ, model number [id number] Serial number: [id number] The patient was observed prior to discharge from the operating suite.
[2016-09-13 11:32] VITALS: BP 146/74
== END 2016-09-13 13:50 ==
LOC: ERH 13:04 → 1NO 16:42 → ERHI 16:42 → ENRESERV 17:18 → ENTRNSPT 18:20 → 1NO 18:31 → CMPTRNSPT 18:45 → 1NO 09-12 08:14 → ENPENDDIS 09-13 10:36 → 1NO 09-13 13:50
PROVIDERS: Emergency Medicine; Internal Medicine Infectious Disease; ADMIT Internal Medicine
DX: R55 Syncope and collapse (principal); I25.10 Atherosclerotic heart disease of native coronary artery without angina pectoris; E11.40 Type 2 diabetes mellitus with diabetic neuropathy, unspecified; E11.610 Type 2 diabetes mellitus with diabetic neuropathic arthropathy; E78.5 Hyperlipidemia, unspecified; E03.9 Hypothyroidism, unspecified; I11.9 Hypertensive heart disease without heart failure
CPT/HCPCS: 80307; 82436; 93005; 93010; 93306; 95816; 96372; C1764; G0378; J1644; J1815

== ENCOUNTER 2017-08-20 23:57 | Emergency (ER) | payer OTHER ==
[~2017-08-20 23:57] MED LIST changes: +ATROPINE 0.01%-10 ML OP; +METOPROLOL TART25 M1 PO; +OMNIPRED10 ML OS; +ZYMAXID2.5 ML OD
--- NOTE | 2017-08-21 00:03 | ED GENERAL ADULT ---
History of Present Illness General Chief Complaint: General Adult Stated Complaint: BIBA "TOOK WRONG INSULIN" Source: patient Exam Limitations: no limitations Vital Signs & Intake/Output Vital Signs & Intake/Output Vital Signs Date Time Temp Pulse Resp B/P B/P Pulse O2 O2 Flow FiO2 Mean Ox Delivery Rate 08/21 0240 98.2 86 18 142/84 96 Room Air 08/20 2358 98.0 80 18 140/98 97 Room Air Allergies Coded Allergies: No Known Allergies (06/27/16) Reconcile Medications Aspirin (Aspirin*) 81 MG TAB.CHEW 1 TAB PO DAILY HEART HEALTH (Reported) Atorvastatin Calcium (Lipitor) 40 MG TABLET 1 TAB PO DAILY CHOLESTEROL ( Reported) [autologous serum] 1 DROP OS 4XDAILY FOR SUSPECTED VIRAL INFECTION (Reported) Furosemide 20 MG TABLET 1 TAB PO DAILY DIURETIC (Reported) Gatifloxacin (Zymaxid) 0.5 % DROPS 1 GTT OD 4 TIMES/DAY eye drops (Reported) Insulin Aspart (Novolog) 100 UNIT/ML VIAL 0 SC TIDAC/HS DM (Reported) Blood sugar Units 80-150 4 151-200 5 201-250 6 251-300 7 301-350 8 351-400 9 > 400 10 Insulin Detemir (Levemir) 100 UNIT/ML VIAL 11 UNITS SC BID DIABETES Levothyroxine Sodium 200 MCG TABLET 1 TAB PO DAILY AC THYROID (Reported) Lisinopril 40 MG TABLET 1 TAB PO DAILY BP (Reported) Metoprolol Tartrate 25 MG TABLET 12.5 MG PO BID BLOOD PRESSURE TAKE DIRECTED. Prednisolone Acetate (Omnipred) 1 % DROPS.SUSP 1 GTT OS 4 TIMES/DAY eye ( Reported) Trifluridine 1 % DROPS 1 DROP OS 5 TIMES/DAY ANTIVIRAL (Reported) Triage Nurses Notes Reviewed? yes Onset: Abrupt Duration: minute(s): Timing: single episode today Injury Environment: home Severity: mild Associated Symptoms: "i FEEL FINE" HPI: 62 YO gentleman presents in good health, after taking humalog 22units tonight. He notes, "I usually take lantus 22u, but took the short acting... I'm afraid that my sugar will drop too quickly." 911 called. Sugar in the field was 429. He notes that he is othewise well and has no other concerns. Past History Travel History Traveled to [place] past 21 day No Medical History Any Pertinent Medical History? 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 Hx Contributory? No Review of Systems Review of Systems Constitutional: Denies: see HPI. Physical Exam Physical Exam General Appearance: well developed/nourished, no apparent distress, alert, comfortable Comments: Review of Systems - except as otherwise noted in HPI Review of Systems Constitutional:no symptoms. EENTM:no symptoms. Respiratory:no symptoms. Cardiovascular:no symptoms. GI:no symptoms. Genitourinary:no symptoms. Musculoskeletal:no symptoms. Skin:no symptoms. Neurological/Psychological:no symptoms. Hematologic/Endocrine:no symptoms. Immunologic/Allergic:no symptoms. All Other Systems: Reviewed and Negative Physical Exam Physical Exam General Appearance: well developed/nourished, no apparent distress Head: atraumatic, normal appearance Eyes: Bilateral: normal appearance. Ears, Nose, Throat: normal pharynx, normal ENT inspection Neck: normal inspection, supple, full range of motion Respiratory: normal breath sounds, chest non-tender, no respiratory distress, quiet respiration, lungs clear Cardiovascular: regular rate/rhythm Gastrointestinal: normal bowel sounds, soft, non-tender, no organomegaly Back: normal inspection, normal range of motion Extremities: normal inspection, normal capillary refill, normal range of motion, no edema Neurologic/Psych: no motor/sensory deficits, awake, alert, oriented x 3 Skin: intact, normal color, warm/dry Core Measures ACS in differential dx? No CVA/TIA Diagnosis: No Sepsis Present: No Sepsis Focused Exam Completed? No Progress Differential Diagnoses I considered the following diagnoses in my evaluation of the patient: hyperglycemia vs other Plan of Care: Orders Procedure Date/time Status COMPREHENSIVE METABOLIC PANEL 05/29 0003 Complete CBC WITHOUT DIFFERENTIAL 08/21 2 Complete ACETONE 08/21 2 Complete Laboratory Tests 08/21/17 0022: Anion Gap 10, Estimated GFR > 60, BUN/Creatinine Ratio 22.7, Glucose 261 H, Calcium 8.9, Total Bilirubin 0.5, AST 21, ALT 25, Alkaline Phosphatase 127 H, Total Protein 6.2 L, Albumin 3.3 L, Globulin 2.9, Albumin/Globulin Ratio 1.1, CBC w Diff NO MAN DIFF REQ, RBC 4.31 L, MCV 92.4, MCH 30.8, MCHC 33.4, RDW 14.5 , MPV 10.6 H, Gran % 65.4, Lymphocytes % 19.3 L, Monocytes % 8.5, Eosinophils % 6.2 H, Basophils % 0.6, Absolute Granulocytes 3.9, Absolute Lymphocytes 1.1 L, Absolute Monocytes 0.5, Absolute Eosinophils 0.4, Absolute Basophils 0, Acetone Level NEGATIVE Initial ED EKG: none Departure Departure Disposition: HOME OR SELF CARE Condition: Stable Clinical Impression Primary Impression: Hyperglycemia Secondary Impressions: Medication administered in error Referrals: Jared Suazo MD (PCP/Family) Departure Forms: Customer Survey General Discharge Information Comments 08/21/17, 2:39am... pt with benign labs... discharge finger stick glucose in 80' s... pt feels well and will continue to check his glucose when he gets home... close follow up advised. Critical Care Note Critical Care Note Critical Care Time: non-applicable
[2017-08-21 00:50] LABS: ABSOLUTE BASOPHIL COUNT 0 /CUMM (0.0-0.2); ABSOLUTE EOSINOPHIL COUNT 0.4 /CUMM (0.0-0.7); ABSOLUTE GRANULOCYTE CT 3.9 /CUMM (1.4-6.5); ABSOLUTE LYMPH COUNT 1.1 /CUMM (1.2-3.4); ABSOLUTE MONOCYTE COUNT 0.5 /CUMM (0.10-0.60); BASOPHIL % 0.6 % (0.0-2.0); EOSINOPHIL % 6.2 % (0-5); GRANULOCYTE % 65.4 % (42.2-75.2); HEMATOCRIT 39.9 % (42-52); MEAN CORPUSCULAR HGB 30.8 PG (27.0-31.0); MEAN CORPUSCULAR HGB CONC 33.4 G/DL (33.0-37.0); MEAN CORPUSCULAR VOLUME 92.4 FL (80.0-94.0); MEAN PLATELET VOLUME 10.6 FL (7.4-10.4); PLATELET COUNT 172 /CUMM (130-400); RBC DISTRIBUTION WIDTH 14.5 % (11.5-14.5); RED BLOOD CELL CT 4.31 /CUMM (4.70-6.10); WHITE BLOOD CELL COUNT 5.9 /CUMM (4.8-10.8)
[2017-08-21 02:40] VITALS: BP 142/84
== END 2017-08-21 02:41 ==
LOC: ERH 23:57
PROVIDERS: Pediatrics
DX: T38.3X1A Poisoning by insulin and oral hypoglycemic [antidiabetic] drugs, accidental (unintentional), initial encounter (principal); E11.9 Type 2 diabetes mellitus without complications; Z79.4 Long term (current) use of insulin